=== PATIENT | female | born 2000 | race Asian ===

== ENCOUNTER 2018-08-09 21:52 | Inpatient (IN) ==
[2018-08-09] MEDS ORDERED: SODIUM CHLORIDE 0.9% 1000ML 1,000 ML IV SCH (22:15)
[2018-08-09 22:36] LABS: Hematocrit (blood only) 20.9 % (37-47); Mean Corpuscular Hgb Conc 33.5 g/dL (32-36); Mean Corpuscular Volume 74.1 fL (80-100); Mean Platelet Volume 9.6 fL (7.4-10.4); Platelet Count 344 K/uL (130-400); RDW Coefficient of Variation 17.1 % (11.5-14.5); RDW Standard Deviation 46.4 fL (36.4-46.3); Red Blood Count 2.82 M/uL (4.2-5.4); White Blood Count 11.96 K/uL (4.8-10.8)
[2018-08-09] MEDS ORDERED: ACETAMINOPHEN 325 MG TAB PO STA (22:43)
[2018-08-09] MEDS ORDERED: DiphenhydrAMINE HCL 50 MG/ML VIAL IV STA (22:43)
[2018-08-09] MEDS ORDERED: SODIUM CHLORIDE 0.9% 250 ML IV PRN (22:43)
[2018-08-09 22:52] LABS: Pregnancy Test, Serum Negative (Negative)
[2018-08-09 23:04] LABS: Anisocytosis Present; Basophils # (auto) 0.03 K/uL (0-0.2); Basophils % (auto) 0.3 %; Eosinophils # (auto) 0.06 K/uL (0-0.5); Eosinophils % (auto) 0.5 %; Hypochromasia Present; Immature Granulocytes # (auto) 0.05 K/uL (0.00-0.02); Immature Granulocytes % (auto) 0.4 %; Lymphocytes # (auto) 3.33 K/uL (1.2-3.4); Lymphocytes % (auto) 27.8 %; Monocytes # (auto) 0.61 K/uL (0.11-0.59); Monocytes % (auto) 5.1 %; Neutrophils # (auto) 7.88 K/uL (1.4-6.5); Neutrophils % (auto) 65.9 %; Polychromasia 1+; Schistocytes 1+
[2018-08-09 23:24] LABS: Alanine Aminotransferase 27 U/L (12-78); Albumin Level 3.3 gm/dl (3.4-5.0); Alkaline Phosphatase 78 U/L (45-117); Aspartate Aminotransferase 14 U/L (15-37); BUN Creatinine Ratio 18.4 (10-20); Bilirubin,Total 0.2 mg/dl (0.2-1); Blood Urea Nitrogen 12 mg/dl (7-18); Calcium 8.1 mg/dl (8.5-10.1); Carbon Dioxide 28 mmol/L (21-32); Chloride 106 mmol/L (98-107); Creatinine Clr Calc Pharmacy 132.4 ml/min; Est GFR (African American) 147.4; Est GFR (Non-African American) 127.2; Globulin 3.4 gm/dl (2.5-4.0); Glucose 83 mg/dl (70-99); Magnesium 2.2 mg/dl (1.8-2.4); Potassium 3.4 mmol/L (3.5-5.1); Sodium 140 mmol/L (136-145); Total Protein 6.7 gm/dl (6.4-8.2); Troponin I < 0.015 ng/ml (0-0.045)
[2018-08-09 23:52] LABS: INR 0.9 (0.9-1.1); Partial Thromboplastin Ratio 0.9; Partial Thromboplastin Time 24.3 Seconds (21.0-31.0); Prothrombin Time 9.4 Seconds (9.0-12.0)
--- NOTE | 2018-08-10 01:27 | History & Physical Report ---
Date of Service August 10, 2018 Assessment & Plan (1) Excessive vaginal ble[age]-year-old female admitted on 10 Aug 2018 for vaginal bleeding and acute anemia. Excessive vaginal bleeding, acute anemia: Onset about 48 hours prior to arrival. Denies history of the same, chest pain, shortness of breath, or other evidence of acute cardiopulmonary dysfunction. Denies accompanying abdominal/pelvic pain. At time of H&P, bleeding had decreased to minimal. - On arrival, afebrile, mildly tachycardic (EKG sinus tachycardia), normotensive, with normal room SpO2. WBC 12. Hemoglobin 6.6, rechecked 7.0. MCV 74. Normal platelets and coag factors. Normal TSH. Blood hCG negative. Electrolytes okay except mild hypocalcemia and hypokalemia. Normal BUN. Pelvic ultrasound was suggestive of a slightly heterogeneous and increased vascularity within the endometrium. - In the ED, was treated with normal saline IVF, Tylenol, and Benadryl. B positive blood type. Two units PRBC transfusion started in ED. - Consult gynecology. Continue maintenance IVF. Recheck CBC in a.m. Started on p.o. iron BID. Hypokalemia: Admit K 3.4. Will replace, recheck in a.m. Ongoing medical issues: - Depression/anxiety: Continue home bupropion and venlafaxine. Code status: Full code. Diet: Regular. DVT prophy: SCDs and ambulation. Defer chemical prophylaxis due to bleeding. PT/OT: Deferred. Disbo: Admit to med telemetry (to watch for sudden tachycardia as sign of acute re-bleeding). (2) Acute anemia: (3) Hypokalemia: (4) Depression: (5) Anxiety: History of Present Illness Primary Care Provider: James Cynthia 18-year-old female is accompanied by her mother with concerns for heavy vaginal bleeding. - She says about two days ago (14May) she noticed that her periods started earlier than normal. It was accompanied by much heavier flow than normal, averaging between 1-2 pads/tampons per hour. This continued up until her outpatient clinic visit earlier today, from which she was referred here to the ED. Patient says that before her period started she had some mild cramping but denies any particular ongoing cramping or any out right abdominal/pelvic pain. - Only other ROS symptom is been some fatigue and lightheadedness. She denies any fevers, known recent illness, chest pain, shortness of breath, or other acute concerns. - First menses was around age 11 and she denies ever being . She also mentions she put herself back on iron a couple days ago and has a history of needing supplemental iron. Patient says that normally she has regular periods about every 28 days with her last menses being roughly around 24Apr. She denies any history of routine heavy bleeding or interval spotting up until two days ago. Allergies Allergy/AdvReac Type Severity Reaction Status Date / Time amoxicillin Allergy Mild Rash Verified 08/10/18 00:42 Home Medications Home Medications Medication Instructions Recorded Confirmed Type bupropion HCl 300 mg PO QAM 08/10/18 08/10/18 History ferrous gluconate 324 mg PO BID #60 tab NS 08/10/18 Rx venlafaxine [Effexor XR] 150 mg PO DAILY 08/10/18 08/10/18 History Past Med/Surg History Medical History No chronic diseases present No significant past surgical history Social History Preferred Language: Citizen Of [place] Communication Ability: Effective Concreter Required: No Beliefs That Will Affect Care: None Current Living Situation: Family and Other Current Living Situation Comment: Roommates Other Information That Helps Us Care for You: No Feels Safe at Home: Yes Safety Concerns: Feels Safe At This Time Smoking Status: Never smoker Hx Alcohol Use: No Hx Substance Use: No Review of Systems Review of Systems: Constitutional: Denies fevers, chills, focal weakness. Positive mild lightheadedness. Eyes: Denies any visual loss or diplopia ENT: Denies any ear/nose/throat pain or difficulty speaking or swallowing Respiratory: Denies any dyspnea, cough, hemoptysis Cardiovascular: Denies any chest pain or feeling of edema Gastrointestinal: Denies any abdominal pain, nausea/vomiting/diarrhea Musculoskeletal: Denies any acute extremity pains, myalgias, or focal weakness Skin: Denies any known acute rashes or lesions Neuro: Denies any headache, acute focal weakness or numbness, or difficulties with speech or swallow. Physical Exam Physical Exam: GENERAL: Awake, alert, well-appearing, in no acute distress HENT: Normocephalic, atraumatic. Oropharynx unremarkable. EYES: Normal conjunctiva. Sclera non-icteric. NECK: Inspection normal. Supple and full ROM. No nuchal rigidity. CARDIAC: +S1S2 regular tachycardia, no murmurs. RESPIRATORY: Clear to auscultation. No wheezes or rales. Normal respiratory effort. GI: +BS, soft, non-distended. No tenderness to palpation. No rebound or guar ding. EXTREMITIES: No pedal edema or calf tenderness. Moving all extremities naturally and easily. NEURO: No gross neuro deficits. Results & Data Vital Signs (Past 12 Hours) Vital Signs Temp Pulse Pulse Resp BP BP Pulse Ox 08/10/18 00:50 36.8 C 115 H 20 113/67 99 08/10/18 00:20 36.8 C 109 H 20 123/65 99 08/10/18 00:05 37 C 106 H 20 121/69 100 08/09/18 23:54 100 08/09/18 23:51 36.6 C 117 H 20 123/67 100 08/09/18 23:05 113 H 20 130/76 98 08/09/18 21:54 36.9 C 120 H 18 114/71 100 Laboratory Results 08/09/18 08/09/18 08/09/18 Range/Units 22:16 22:16 22:16 WBC (4.8-10.8) K/uL RBC (4.2-5.4) M/uL Hgb (12.0-16.0) g/dL Hct (37-47) % MCV (80-100) fL MCH (25-34) pg MCHC (32-36) g/dL RDW Std Deviation (36.4-46.3) fL RDW Coeff of Derian (11.5-14.5) % Plt Count (130-400) K/uL MPV (7.4-10.4) fL Immature Gran % (Auto) % Neut % (Auto) % Lymph % (Auto) % Dukes % (Auto) % Eos % (Auto) % Baso % (Auto) % Immature Gran # (Auto) (0.00-0.02) K/uL Neut # (Auto) (1.4-6.5) K/uL Lymph # (Auto) (1.2-3.4) K/uL Dukes # (Auto) (0.11-0.59) K/uL Eos # (Auto) (0-0.5) K/uL Baso # (Auto) (0-0.2) K/uL Polychromasia Hypochromasia Anisocytosis Schistocytes PT 9.4 (9.0-12.0) Seconds INR 0.9 (0.9-1.1) APTT 24.3 (21.0-31.0) Seconds PTT Ratio 0.9 Sodium 140 (136-145) mmol/L Potassium 3.4 L (3.5-5.1) mmol/L Chloride 106 (98-107) mmol/L Carbon Dioxide 28 (21-32) mmol/L Anion Gap 6.0 (3-11) BUN 12 (7-18) mg/dl Creatinine 0.66 (0.6-1.2) mg/dl Est Cr Clr Drug Dosing 132.4 ml/min Est GFR ( Amer) 147.4 Est GFR (Non-Af Amer) 127.2 BUN/Creatinine Ratio 18.4 (10-20) Glucose 83 (70-99) mg/dl Calcium 8.1 L (8.5-10.1) mg/dl Magnesium 2.2 (1.8-2.4) mg/dl Total Bilirubin 0.2 (0.2-1) mg/dl AST 14 L (15-37) U/L ALT 27 (12-78) U/L Alkaline Phosphatase 78 (45-117) U/L Troponin I < 0.015 (0-0.045) ng/ml Total Protein 6.7 (6.4-8.2) gm/dl Albumin 3.3 L (3.4-5.0) gm/dl Globulin 3.4 (2.5-4.0) gm/dl Albumin/Globulin Ratio 1.0 (0.9-2) TSH 3.390 (0.300-4.500) uIu/ml HCG, Qual Negative (Negative) Blood Type Blood Type Recheck Antibody Screen Crossmatch 08/09/18 08/09/18 08/09/18 Range/Units 22:16 22:16 15:23 WBC 11.96 H (4.8-10.8) K/uL RBC 2.82 L (4.2-5.4) M/uL Hgb 7.0 L (12.0-16.0) g/dL Hct 20.9 L* (37-47) % MCV 74.1 L (80-100) fL MCH 24.8 L (25-34) pg MCHC 33.5 (32-36) g/dL RDW Std Deviation 46.4 H (36.4-46.3) fL RDW Coeff of Derian 17.1 H (11.5-14.5) % Plt Count 344 (130-400) K/uL MPV 9.6 (7.4-10.4) fL Immature Gran % (Auto) 0.4 % Neut % (Auto) 65.9 % Lymph % (Auto) 27.8 % Dukes % (Auto) 5.1 % Eos % (Auto) 0.5 % Baso % (Auto) 0.3 % Immature Gran # (Auto) 0.05 H (0.00-0.02) K/uL Neut # (Auto) 7.88 H (1.4-6.5) K/uL Lymph # (Auto) 3.33 (1.2-3.4) K/uL Dukes # (Auto) 0.61 H (0.11-0.59) K/uL Eos # (Auto) 0.06 (0-0.5) K/uL Baso # (Auto) 0.03 (0-0.2) K/uL Polychromasia 1+ Hypochromasia Present Anisocytosis Present Schistocytes 1+ PT (9.0-12.0) Seconds INR (0.9-1.1) APTT (21.0-31.0) Seconds PTT Ratio Sodium (136-145) mmol/L Potassium (3.5-5.1) mmol/L Chloride (98-107) mmol/L Carbon Dioxide (21-32) mmol/L Anion Gap (3-11) BUN (7-18) mg/dl Creatinine (0.6-1.2) mg/dl Est Cr Clr Drug Dosing ml/min Est GFR ( Amer) Est GFR (Non-Af Amer) BUN/Creatinine Ratio (10-20) Glucose (70-99) mg/dl Calcium (8.5-10.1) mg/dl Magnesium (1.8-2.4) mg/dl Total Bilirubin (0.2-1) mg/dl AST (15-37) U/L ALT (12-78) U/L Alkaline Phosphatase (45-117) U/L Troponin I (0-0.045) ng/ml Total Protein (6.4-8.2) gm/dl Albumin (3.4-5.0) gm/dl Globulin (2.5-4.0) gm/dl Albumin/Globulin Ratio (0.9-2) TSH (0.300-4.500) uIu/ml HCG, Qual (Negative) Blood Type B Positive Blood Type Recheck B Positive Antibody Screen NEGATIVE Crossmatch See Detail Medications Administered Sodium Chloride (Nss) 250 mls @ 15 mls/hr IV .[id number] PRN PRN Reason: For Transfusion Stop: 09/08/18 22:42 Last Admin: 08/09/18 23:01 Dose: 15 mls/hr Documented by: [id number] Discontinued Medications Acetaminophen (Tylenol) 650 mg PO NOW STA Stop: 08/09/18 22:44 Last Admin: 08/09/18 22:59 Dose: 650 mg Documented by: [id number] Diphenhydramine HCl (Benadryl) 25 mg IV NOW STA Stop: 08/09/18 22:44 Last Admin: 08/09/18 22:59 Dose: 25 mg Documented by: [id number] Sodium Chloride (Nss 1000ml) 1,000 mls @ 999 mls/hr IV .Q1H1M TITUS Stop: 08/09/18 23:15 Last Infusion: 08/10/18 00:00 Dose: 0 mls/hr Documented by: [id number] Admin: 08/09/18 22:26 Dose: 999 mls/hr Documented by: [id number] Code Status & VTE Plan Code Status Full code VTE Prophylaxis Plan VTE Prophylaxis will be ordered: Yes Supervising Physician Co-Signing Physician Notes Attending addendum: I have physically seen this patient, have supervised the medical residents activities, and agree with the H&P unless as otherwise noted. Assessment and Plan: Vaginal bleeding/anemia with hemoglobin 7.0- Patient is young, is appropriately tachycardic to compensate for low hemoglobin, therefore would not aggressively transfuse at this time. Consult BALE TIE MACHINE OPERATOR for opinion regarding control bleeding. Report from ED shows that BALE TIE MACHINE OPERATOR felt that reading of CT scan for possible endometritis would not be consistent with patient's current state. Admit to monitored bed. H&H every 6 hours. Check iron, TIBC, B12 and folic acid levels IV fluids. Remainder of orders and notations as noted. Resident Activity Tracking Resident Involvement: Resident Care Provided Care Provided: Adult [facility]
--- NOTE | 2018-08-10 01:31 | Emergency Department Note ---
History of Present Illness General Chief complaint: Abnormal Labs/Diagnostic Testing Stated complaint: ABNORMAL LABS Time Seen by Provider: 08/09/18 22:02 History of Present Illness This is a 18-year-old female presenting to the emergency department for evaluation of atypical outpatient labs. The patient has had profound vaginal bleeding over the past 4 to 5 days. She states that she initially had to change her tampon and pad every hour for the first 2 days. She had 1 day of minimal bleeding, and then had return of bleeding yesterday. The patient went to her primary care physician office this afternoon because of the bleeding, where outpatient labs, and pelvic exam were performed, as well as outpatient ultrasound. The patient denies , and states that she has had to change the pad once every 7 or 8 hours today. The patient had lightheadedness yesterday, but does not report headache, neck pain, chest pain, shortness of breath, or abdominal pain. She has never had symptoms like this in the past. She was called this evening with critical labs including a hemoglobin of 6.6. Her ultrasound showed a slightly heterogeneous endometrium which was nonspecific, but did recommend SPRAY GUN STRIPER consultation. She was given instructions to present to the ER for evaluation. She rates her current discomfort as 0/10. Home Medications Home Medications Medication Instructions Recorded Confirmed Type bupropion HCl 300 mg PO QAM 08/10/18 08/10/18 History venlafaxine [Effexor XR] 150 mg PO DAILY 08/10/18 08/10/18 History Allergies Allergy/AdvReac Type Severity Reaction Status Date / Time amoxicillin Allergy Mild Rash Verified 08/10/18 00:42 Past Med/Surg History Medical History No chronic diseases present No significant past surgical history Social History Preferred Language: [place] Communication Ability: Effective Registered Massage Therapist Required: No Beliefs That Will Affect Care: None Current Living Situation: Family and Other Current Living Situation Comment: Roommates Other Information That Helps Us Care for You: No Feels Safe at Home: Yes Safety Concerns: Feels Safe At This Time Smoking Status: Never smoker Hx Alcohol Use: No Hx Substance Use: No Review of Systems A total of 10 systems reviewed and were otherwise negative Physical Exam Vital Signs Vital Signs - 24 hr 08/09/18 21:54 08/09/18 23:05 08/09/18 23:51 Temperature 36.9 C 36.6 C Temperature Source Oral Oral Sepsis Recent Fever Within 48 Hours No Sepsis New/Unexplained Change in Mental Status No Sepsis Action Taken by Nursing No Action Required Pulse Rate 120 H 117 H Pulse Rate [Right Finger] 113 H Pulse Rhythm Pulse Rhythm [Right Finger] Regular Pulse Strength Pulse Strength [Right Finger] Normal Respiratory Rate 18 20 20 Respiratory Effort / Characteristics Non-Labored Spontaneous Respiratory Depth Normal Blood Pressure 114/71 123/67 Blood Pressure [Right Arm] 130/76 Blood Pressure Mean 85 85 Blood Pressure Mean [Right Arm] 94 Pulse Oximetry 100 98 100 Oxygen Delivery Method Room Air Room Air 08/09/18 23:54 08/10/18 00:05 08/10/18 00:20 Temperature 37 C 36.8 C Temperature Source Oral Oral Sepsis Recent Fever Within 48 Hours Sepsis New/Unexplained Change in Mental Status Sepsis Action Taken by Nursing Pulse Rate 106 H 109 H Pulse Rate [Right Finger] Pulse Rhythm Pulse Rhythm [Right Finger] Pulse Strength Pulse Strength [Right Finger] Respiratory Rate 20 20 Respiratory Effort / Characteristics Respiratory Depth Blood Pressure 121/69 123/65 Blood Pressure [Right Arm] Blood Pressure Mean 86 84 Blood Pressure Mean [Right Arm] Pulse Oximetry 100 100 99 Oxygen Delivery Method Room Air 08/10/18 00:50 Temperature 36.8 C Temperature Source Oral Sepsis Recent Fever Within 48 Hours Sepsis New/Unexplained Change in Mental Status Sepsis Action Taken by Nursing Pulse Rate 115 H Pulse Rate [Right Finger] Pulse Rhythm Regular Pulse Rhythm [Right Finger] Pulse Strength Normal Pulse Strength [Right Finger] Respiratory Rate 20 Respiratory Effort / Characteristics Respiratory Depth Blood Pressure 113/67 Blood Pressure [Right Arm] Blood Pressure Mean 82 Blood Pressure Mean [Right Arm] Pulse Oximetry 99 Oxygen Delivery Method VITALS: Vitals are noted on the nurse's note and reviewed by myself. Vital signs with noted tachycardia GENERAL: female who appears pale but is overall cooperative HEAD: Normocephalic atraumatic. EARS: External ear normal. External auditory canals clear, tympanic membranes pearly rehman without erythema or effusion bilaterally. EYES: Pupils equal round and reactive to light and accommodation. Conjunctivae without injection, sclerae without icterus. Extraocular movements intact. NOSE: Patent, turbinates without inflammation or discharge. MOUTH: Mucous membranes moist. Tonsils are not enlarged. Pharynx without erythema, blood, or exudate. Uvula midline. Airway patent. NECK: Supple without nuchal rigidity. No lymphadenopathy. No thyromegaly. Cervical spine is nontender. HEART: Regular rate and rhythm without murmurs gallops or rubs. LUNGS: Clear to auscultation bilaterally without wheezes, rales or rhonchi. No retractions or accessory muscle use. ABDOMEN: Positive normal bowel sounds x 4. Soft, nontender, without masses or organomegaly. No guarding or rebound tenderness. MUSCULOSKELETAL: No muscle atrophy, erythema, or edema noted. Full range of motion in all extremities. NEURO: Patient was alert and oriented to person place and time. CN II through XII grossly intact. SKIN: The skin was without rashes, erythema, edema, or bruising. Capillary refill less than 2 seconds. Course Administered Medications Discontinued Medications Acetaminophen (Tylenol) 650 mg PO NOW STA Stop: 08/09/18 22:44 Last Admin: 08/09/18 22:59 Dose: 650 mg Documented by: [id number] Diphenhydramine HCl (Benadryl) 25 mg IV NOW STA Stop: 08/09/18 22:44 Last Admin: 08/09/18 22:59 Dose: 25 mg Documented by: [id number] Sodium Chloride (Nss 1000ml) 1,000 mls @ 999 mls/hr IV .Q1H1M TITUS Stop: 08/09/18 23:15 Last Infusion: 08/10/18 00:00 Dose: 0 mls/hr Documented by: [id number] Admin: 08/09/18 22:26 Dose: 999 mls/hr Documented by: [id number] Sodium Chloride (Nss) 250 mls @ 15 mls/hr IV .[id number] PRN PRN Reason: For Transfusion Stop: 09/08/18 22:42 Last Admin: 08/09/18 23:01 Dose: 15 mls/hr Documented by: [id number] Medical Decision Making Differential Diagnosis Differential diagnosis: Etiologies such as ectopic , dysfunction uterine bleeding, pelvic mass, fibroid, coagulopathy, anemia, trauma, infection, as well as others were entertained. Laboratory Data Result diagrams: 08/09/18 22:16 08/09/18 22:16 Lab Results 08/09/18 08/09/18 08/09/18 Range/Units 15:23 22:16 22:16 WBC 11.96 H (4.8-10.8) K/uL RBC 2.82 L (4.2-5.4) M/uL Hgb 7.0 L (12.0-16.0) g/dL Hct 20.9 L* (37-47) % MCV 74.1 L (80-100) fL MCH 24.8 L (25-34) pg MCHC 33.5 (32-36) g/dL RDW Std Deviation 46.4 H (36.4-46.3) fL RDW Coeff of Derian 17.1 H (11.5-14.5) % Plt Count 344 (130-400) K/uL MPV 9.6 (7.4-10.4) fL Immature Gran % (Auto) 0.4 % Neut % (Auto) 65.9 % Lymph % (Auto) 27.8 % Winkler % (Auto) 5.1 % Eos % (Auto) 0.5 % Baso % (Auto) 0.3 % Immature Gran # (Auto) 0.05 H (0.00-0.02) K/uL Neut # (Auto) 7.88 H (1.4-6.5) K/uL Lymph # (Auto) 3.33 (1.2-3.4) K/uL Winkler # (Auto) 0.61 H (0.11-0.59) K/uL Eos # (Auto) 0.06 (0-0.5) K/uL Baso # (Auto) 0.03 (0-0.2) K/uL Polychromasia 1+ Hypochromasia Present Anisocytosis Present Schistocytes 1+ PT (9.0-12.0) Seconds INR (0.9-1.1) APTT (21.0-31.0) Seconds PTT Ratio Sodium (136-145) mmol/L Potassium (3.5-5.1) mmol/L Chloride (98-107) mmol/L Carbon Dioxide (21-32) mmol/L Anion Gap (3-11) BUN (7-18) mg/dl Creatinine (0.6-1.2) mg/dl Est Cr Clr Drug Dosing ml/min Est GFR ( Amer) Est GFR (Non-Af Amer) BUN/Creatinine Ratio (10-20) Glucose (70-99) mg/dl Calcium (8.5-10.1) mg/dl Magnesium (1.8-2.4) mg/dl Total Bilirubin (0.2-1) mg/dl AST (15-37) U/L ALT (12-78) U/L Alkaline Phosphatase (45-117) U/L Troponin I (0-0.045) ng/ml Total Protein (6.4-8.2) gm/dl Albumin (3.4-5.0) gm/dl Globulin (2.5-4.0) gm/dl Albumin/Globulin Ratio (0.9-2) TSH (0.300-4.500) uIu/ml HCG, Qual (Negative) Blood Type B Positive Blood Type Recheck B Positive Antibody Screen NEGATIVE Crossmatch See Detail 08/09/18 08/09/18 08/09/18 Range/Units 22:16 22:16 22:16 WBC (4.8-10.8) K/uL RBC (4.2-5.4) M/uL Hgb (12.0-16.0) g/dL Hct (37-47) % MCV (80-100) fL MCH (25-34) pg MCHC (32-36) g/dL RDW Std Deviation (36.4-46.3) fL RDW Coeff of Derian (11.5-14.5) % Plt Count (130-400) K/uL MPV (7.4-10.4) fL Immature Gran % (Auto) % Neut % (Auto) % Lymph % (Auto) % Winkler % (Auto) % Eos % (Auto) % Baso % (Auto) % Immature Gran # (Auto) (0.00-0.02) K/uL Neut # (Auto) (1.4-6.5) K/uL Lymph # (Auto) (1.2-3.4) K/uL Winkler # (Auto) (0.11-0.59) K/uL Eos # (Auto) (0-0.5) K/uL Baso # (Auto) (0-0.2) K/uL Polychromasia Hypochromasia Anisocytosis Schistocytes PT 9.4 (9.0-12.0) Seconds INR 0.9 (0.9-1.1) APTT 24.3 (21.0-31.0) Seconds PTT Ratio 0.9 Sodium 140 (136-145) mmol/L Potassium 3.4 L (3.5-5.1) mmol/L Chloride 106 (98-107) mmol/L Carbon Dioxide 28 (21-32) mmol/L Anion Gap 6.0 (3-11) BUN 12 (7-18) mg/dl Creatinine 0.66 (0.6-1.2) mg/dl Est Cr Clr Drug Dosing 132.4 ml/min Est GFR ( Amer) 147.4 Est GFR (Non-Af Amer) 127.2 BUN/Creatinine Ratio 18.4 (10-20) Glucose 83 (70-99) mg/dl Calcium 8.1 L (8.5-10.1) mg/dl Magnesium 2.2 (1.8-2.4) mg/dl Total Bilirubin 0.2 (0.2-1) mg/dl AST 14 L (15-37) U/L ALT 27 (12-78) U/L Alkaline Phosphatase 78 (45-117) U/L Troponin I < 0.015 (0-0.045) ng/ml Total Protein 6.7 (6.4-8.2) gm/dl Albumin 3.3 L (3.4-5.0) gm/dl Globulin 3.4 (2.5-4.0) gm/dl Albumin/Globulin Ratio 1.0 (0.9-2) TSH 3.390 (0.300-4.500) uIu/ml HCG, Qual Negative (Negative) Blood Type Blood Type Recheck Antibody Screen Crossmatch MDM Narrative Physical exam and history were performed. Nursing notes, EMR, and Medication List were personally reviewed. Patient appears to have had vaginal bleeding the past several days with hemoglobin of 6.6 on outpatient labs. On examination the patient is tachycardic but pleasant and cooperative. She does not have pain or reproducible discomfort on exam. IV access x2 was established. Labs and blood bank were gathered. The patient was hydrated with normal saline and placed on the air sampling and monitoring. The case was discussed with my attending physician, Dr. Snow, who remained involved in care and decision-making. Dr. Snow did get consent for blood transfusion, and appropriate paperwork was completed. The patient's blood work in the ER today is as above and was reviewed. She does have an elevated white blood cell count of 11.96. She continues to be anemic at 7.0 with a hematocrit of 20.9. Platelet count is 344. INR is 0.9. TSH is 3.3. Transaminases are not diagnostic. Bilirubin is 0.2. Troponin is negative. She has blood type B+. She is not . Based on the patient's symptoms of symptomatic anemia, we did elect to initiate a transfusion of 2 units of blood. She was premedicated with Benadryl and Tylenol. I did discuss the case with on-call INSPECTOR AND MENDER, Dr. Lan, as well as the on-call hospitalist Dr. Pinedo. Dr. Pinedo agreed to evaluate the patient here in the emergency department for further management. Please see his dictation for further patient course, plan, and disposition. The chart was completed utilizing [employer] Voice Recognition Software. Grammatical errors, random word insertions, pronoun errors, and incomplete sentences are an occasional consequence of this system due to software limitations, ambient noise, and hardware issues. Any formal questions or concerns about the content, text, or information contained within the body of this dictation should be directly addressed to the provider for clarification. . Impression & Plan Acute anemia, Excessive vaginal bleeding Critical Care Time I have personally spent greater than 30 minutes of critical care time in the direct management of this patient. This includes bedside care, interpretation of diagnostic studies, and testing, discussion with consultants, patient, and family members, and other required patient management activities. This 30 minutes is in excess of all separately billable procedures. Discharge Plan Visit Data *Final* Discharge Date/Time: 08/10/18 01:57 Chief Complaint: Abnormal Labs/Diagnostic Testing Stated Complaint: ABNORMAL LABS ED Provider: Will Snow ED Midlevel Provider: Pratik Myers Discharge Problem: Acute anemia, Excessive vaginal bleeding Patient Disposition: Admitted As Inpatient Discharge Instructions Interventions: ED Discharge Assessment Last Done: 08/10/18 01:57
[2018-08-10] MEDS ORDERED: LACTATED RINGER'S 1,000 ML IV SCH (02:24)
[2018-08-10] MEDS ORDERED: ACETAMINOPHEN 325 MG TAB PO PRN (02:24)
[2018-08-10] MEDS ORDERED: POTASSIUM CHLORIDE 20 MEQ TABCR PO ONE (02:24)
[2018-08-10] MEDS ORDERED: ONDANSETRON INJ 2 MG/ML 2 ML VIAL IV PRN (02:24)
[2018-08-10 06:35] LABS: Basophils # (auto) 0.01 K/uL (0-0.2); Basophils % (auto) 0.1 %; Eosinophils # (auto) 0.05 K/uL (0-0.5); Eosinophils % (auto) 0.5 %; Hematocrit (blood only) 24.9 % (37-47); Hemoglobin 8.2 g/dL (12.0-16.0); Immature Granulocytes # (auto) 0.06 K/uL (0.00-0.02); Immature Granulocytes % (auto) 0.6 %; Lymphocytes # (auto) 3.15 K/uL (1.2-3.4); Lymphocytes % (auto) 32.5 %; Mean Corpuscular Hgb Conc 32.9 g/dL (32-36); Mean Corpuscular Volume 78.3 fL (80-100); Mean Platelet Volume 9.5 fL (7.4-10.4); Monocytes # (auto) 0.49 K/uL (0.11-0.59); Monocytes % (auto) 5.1 %; Neutrophils # (auto) 5.92 K/uL (1.4-6.5); Neutrophils % (auto) 61.2 %; Nucleated RBC # (auto) 0.06 K/uL (0-0); Nucleated RBC % (auto) 0.7 %; Platelet Count 231 K/uL (130-400); RDW Coefficient of Variation 16.9 % (11.5-14.5); RDW Standard Deviation 48.4 fL (36.4-46.3); Red Blood Count 3.18 M/uL (4.2-5.4); White Blood Count 9.68 K/uL (4.8-10.8)
[2018-08-10 07:06] LABS: BUN Creatinine Ratio 18.5 (10-20); Blood Urea Nitrogen 11 mg/dl (7-18); Calcium 7.8 mg/dl (8.5-10.1); Carbon Dioxide 25 mmol/L (21-32); Chloride 110 mmol/L (98-107); Creatinine Clr Calc Pharmacy 146.5 ml/min; Est GFR (African American) > 150.0; Est GFR (Non-African American) 131.2; Glucose 86 mg/dl (70-99); Sodium 141 mmol/L (136-145)
[2018-08-10 07:11] LABS: Potassium 4.4 mmol/L (3.5-5.1)
[2018-08-10] MEDS ORDERED: FERROUS SULFATE 325 MG TAB PO SCH (08:00)
[2018-08-10] MEDS ORDERED: VENLAFAXINE HCL XR 150 MG CAPXR PO SCH (09:00)
[2018-08-10] MEDS ORDERED: BuPROPion XL 300 MG TABCR PO SCH (09:00)
--- NOTE | 2018-08-10 09:14 | Consultation Report ---
DATE OF CONSULTATION: 08/10/2018 CHIEF COMPLAINT: Consult for heavy bleeding BRIEF HISTORY: Sharron is a 18-year-old G0 with an LMP of 08/07/2018. The patient presented to the ED with lightheadedness and dizziness with heavier than normal period. The patient reports that she had been saturating a pad every 1-2 hours for the first 2 days of her period. She reports that yesterday her bleeding had improved to a pad every 5-6 hours, and at time of evaluation today, the patient reports that her bleeding has nearly stopped. The patient did undergo a transvaginal ultrasound which was noted to have an unremarkable uterus with a 1 cm thick endometrium that was slightly heterogeneous and demonstrate increased vascularity. The right ovary contained a complex cyst thought to represent a corpus luteum or hemorrhagic cyst. The left ovary was unremarkable. Laboratory evaluation in the ED was notable for a hemoglobin of 7.0, hematocrit of 20.9, MCV of 74.1. Coags were unremarkable. BMP was also unremarkable. In discussion with the patient today, she does report that typically she has regular periods roughly every 28-30 days with 3-4 days of bleeding. She reports that she typically has 1-2 days of heavy bleeding which she saturated the pads about every 3-4 hours. She denies any bleeding between periods. She denies any bleeding from her prior period until this most recent LMP of 08/07. PAST MEDICAL HISTORY: Depression, otherwise unremarkable. PAST SURGICAL HISTORY: The patient denies any significant past surgeries. SOCIAL HISTORY: The patient denies tobacco, alcohol or illicit drug use. MEDICATIONS: Wellbutrin and Effexor. ALLERGIES: AMOXICILLIN. PHYSICAL EXAMINATION: VITAL SIGNS: Blood pressure 113/72, pulse 92, respiratory rate 18, temperature 98.2, O2 sats 99%. GENERAL: The patient was well appearing, in no acute distress, alert and oriented x3. CARDIAC: Showed regular rate and rhythm. LUNGS: Clear to auscultation to auscultation bilaterally. ABDOMEN: Soft, nontender, nondistended, no hepatosplenomegaly, no rebound or guarding noted. GENITOURINARY: Deferred today as the patient reports that her bleeding has stopped and ultrasound was relatively unremarkable. EXTREMITIES: Lower extremities were unremarkable bilaterally. ASSESSMENT AND PLAN: Ms. Crowley is a 18-year-old G0 who presents with heavy uterine bleeding and questionable endometrial pathology on ultrasound. Based on the patient's history, the bleeding would be a little unusual to cause the level of anemia noted on presentation. In addition, there is also noted to be a microcytic anemia which likely is related to either an iron deficiency or other underlying chronic anemia. The patient's bleeding, however, likely did cause an acute worsening of her anemia which did likely cause her symptoms. At this time, the bleeding has just stopped. The pathology, there is questionable on the ultrasound, is most likely a retained blood clot that was present during the ultrasound as the patient does not have a history of heavy bleeding or any intermenstrual bleeding which would be expected with a polyp or endometrial fibroid. I did discuss with the patient today starting a medication to control her periods. We discussed possibilities including an oral combined pill, progesterone-only pill, Depo-Provera as well as the IUDs. At this point, since the bleeding has stopped, no acute interventions are indicated and therefore I will ask the patient to see me in clinic on Monday and I will follow up with a transvaginal ultrasound at that time and also hold slot for my next OR day if uterine pathology is noted, so D and C, hysteroscopy can be performed if indicated. MTDD
--- NOTE | 2018-08-10 12:48 | Discharge Summary ---
Date of Service August 10, 2018 Admission HPI Per Admitting Provider 18-year-old female is accompanied by her mother with concerns for heavy vaginal bleeding. - She says about two days ago (14May) she noticed that her periods started earlier than normal. It was accompanied by much heavier flow than normal, averaging between 1-2 pads/tampons per hour. This continued up until her outpatient clinic visit earlier today, from which she was referred here to the ED. Patient says that before her period started she had some mild cramping but denies any particular ongoing cramping or any out right abdominal/pelvic pain. - Only other ROS symptom is been some fatigue and lightheadedness. She denies any fevers, known recent illness, chest pain, shortness of breath, or other acute concerns. - First menses was around age 11 and she denies ever being . She also mentions she put herself back on iron a couple days ago and has a history of needing supplemental iron. Patient says that normally she has regular periods about every 28 days with her last menses being roughly around 24Apr. She denies any history of routine heavy bleeding or interval spotting up until two days ago. Principal Diagnosis acute blood loss anemia abnormal vaginal bleeding Discharge Exam Constitutional WD/WN, vitals as above healthy appearing, cooperative and comfortable; no acute distress and no altered mental status Eyes no conjunctival abnormality and no scleral abnormality ENMT external ear and nose normal, oropharynx normal Ears: no hearing impairment Neck normal visual inspection Respiratory normal respiratory effort, lungs clear to auscultation Cardiovascular RRR, no murmur, no edema Extremities: no calf tenderness and no edema Gastrointestinal (Abdomen) normal bowel sounds, soft, nontender, no hepatosplenomegaly Inspection/Auscultation: abdomen not distended Percussion/Palpation: no guarding and abdomen not rigid Musculoskeletal Head/Neck/Chest: normocephalic, head atraumatic and neck supple Extremities: extremities normal to inspection Skin no rashes, warm and dry Trauma: no evidence of skin trauma Neurologic PERRL, EOMI, accommodation nl, no face palsy, no dysarthria moves all extremities; + abnormal touch/pain/proprioception, + CN's not intact and no focal motor deficits No nystagmus with saccadic eye movement Psychiatric A+Ox3, euthymic affect Eye Contact: good eye contact Speech: normal rate/rhythm/volume of speech Discharge Data Allergies Allergy/AdvReac Type Severity Reaction Status Date / Time amoxicillin Allergy Mild Rash Verified 08/10/18 00:42 Consultations 08/10/18 00:21 ED Decision to Admit Stat 08/10/18 02:24 Consult Gynecology Routine Hospital Course (1) Excessive vaginal bleedin-year-old female admitted on 10 Aug 2018 for vaginal bleeding and acute anemia. Acute iron deficiency anemia On arrival: afebrile, EKG sinus tachycardia, normotensive, with normal room SpO2. WBC 12. Hemoglobin 6.6, rechecked 7.0. MCV 74. Normal platelets and coag factors. Normal TSH. Blood hCG negative. Electrolytes okay except mild hypocalcemia and hypokalemia. Normal BUN. s/p transfusion of 2 units of pRBCs, with resolution of lightheadedness - Discharged on ferrous gluconate BID supplementation with education for ideal timing to take, risk of constipation and appropriate mx of said sx - Recommend repeat CBC/iron studies in 6 months, or sooner if abnormal bleeding continues Metorrhagia At time of admission, bleeding had decreased to minimal - no need for hormonal control Pelvic ultrasound was suggestive of a slightly heterogeneous and increased vascularity within the endometrium. - Will follow up with drug worker, Dr. Lna for repeat pelvic U/S 08/13/18 - Follow up with PCP re: control options to help control menses timing/severity Mild concussion From syncopal episode 2 days prior to arrival. Symptoms 99% resolved on assessment - Follow up with PCP for recurrent/persistent sx Hypokalemia Admit K 3.4. Normalized with repletion Depression/anxiety - Continue home bupropion and venlafaxine. (2) Acute anemia: (3) Hypokalemia: (4) Depression: (5) Anxiety: (6) Mild concussion: Total Time Total Time Spent Total Time Spent (In Minutes): >30 Discharge Plan Discharge Items Patient Disposition: Home - Self-Care Reason For Visit: VAGINAL BLEEDING, ANEMIA Discharge Diagnosis: Metrorrhagia Condition: Good Discharge Goals: Decrease discomfort Activity: Resume your previous activity Non-emergency contact: Primary Care Provider Call non-emergency contact if: your symptoms worsen Follow-up/Referrals: James Marie [Primary Care Provider] - 08/17/18 3:10 pm (Please, follow up at Dr. Marie's office with Anna DELA CRUZNP on MondayAugust 17 at 3:10 pm. *If you need to change this appointment, call the office at [phone].) Santhosh Lan MD [Physician] - 08/13/18 1:00 pm (Please, follow up at Dr. Lan's office on MondayAugust 13 at 1:00 pm (arrive 12:40 pm). *The office is located in [address] of [facility] [place]. This is the big building next to this hospital. If you have any questions, call the office at [phone].) Diet: Regular Addtl Provider Instructions: Heavy bleeding outside of your normal menstrual cycle. You were transfused 2 units of blood, with improvement of hemoglobin to 8.2 On discharge, in addition to your regular medications, take ferrous gluconate twice a day x 3-6 months. This medication is best absorbed if taken on an empty stomach (an hour before or after food intake) and when taken with orange juice if possible, or water. Avoid taking close to time of dairy intake. This medication may make your stool black, and might make you constipated (so keep yourself well hydrated, and use stool softeners if required. Or else, reduce medication to once daily if significant constipation) Follow up with gynecology on August 13, 2018 for repeat ultra sound. Talk to your PCP about contraception options to help control blood and iron loss during menses Seek medical care if you have ongoing concussive symptoms in 1-2 weeks. Check your hemoglobin level and/or iron studies again in 6 months Prescriptions: New ferrous gluconate 324 mg (37.5 mg iron) tablet 324 mg PO BID Qty: 60 RF: 0 Continued bupropion HCl 300 mg Tablet Extended Release 24 Hr 300 mg PO QAM RF: 0 venlafaxine [Effexor XR] 150 mg Capsule,Extended Release 24hr 150 mg PO DAILY RF: 0 Stand-Alone Forms: [facility] Discharge Orders: Discharge Order (Routine); Ordered 08/10/18 Ordered By: Sandie Qureshi Admission Data Admit Date/Time: 08/10/18 01:23 Attending Provider: Will Saba Admit Provider: Elian Lassiter Primary Care Provider: James Marie Other Providers: PasquarJuan Antonio [place] Joshua D. Service: Telemetry Medical Other Interventions: Discharge Summary Assessment (RN) Last Done: 08/10/18 14:00 DC Date/Time DO NOT enter until pt leaves facility: 08/10/18 14:49 Supervising Physician Co-Signing Physician Notes I personally examined the patient and verified all cohen points of history and exam, discussed case, and agree with decision making with Dr Qureshi. Feeling better. Bleeding stopped. Extensive discussions with patient and mother on bleeding as well as anemia, including iron deficiency discussion. Vitals noted, in general she is pleasant no distress. HEENT is moist. Breathing unlabored no accessory muscle use. Skin shows no rashes no pallor or icterus. Acute likely superimposed on subacute blood loss anemianow improved status post transfusion. Stable for home. Chronic microcytic anemiathis is likely due to chronic iron deficiency from heavy menstrual losses. Outpatient follow-up, iron replacement, follow-up iron stores in approximately 3 to 4 months once donor blood effect will have worn off of her labs. Continue to follow CBC closely as an outpatient. Heavy menstrual bleedingstopped on its own, no hormonal intervention necessary right now Abnormal uterine ultrasoundmost likely the abnormalities are just blood. [employer]ATE [employer] is going to see her next week and repeat ultrasound. Stable for home. Resident Activity Tracking Resident Involvement: Resident Care Provided Care Provided: Adult Hospital Medicine
== END 2018-08-10 14:49 | disposition home or self-care (01) | DRG 760 ==
LOC: ED 21:52 → SUATTDRO 08-10 01:23 → 2W 08-10 01:23

== ENCOUNTER 2020-01-26 22:27 | Inpatient (IN) ==
[2020-01-26] MEDS ORDERED: SODIUM CHLORIDE 0.9% 1000ML 2,000 ML IV ONE (23:03)
[2020-01-26] MEDS ORDERED: ONDANSETRON INJ 2 MG/ML 2 ML VIAL IV STA (23:03)
[2020-01-26] MEDS ORDERED: FAMOTIDINE 20MG IV PUSH 20 MG/5 ML SYR IV STA (23:03)
[2020-01-26 23:26] LABS: Basophils # (auto) 0.03 K/uL (0-0.2); Basophils % (auto) 0.3 %; Eosinophils # (auto) 0.03 K/uL (0-0.5); Eosinophils % (auto) 0.3 %; Hematocrit (blood only) 40.3 % (37-47); Immature Granulocytes # (auto) 0.02 K/uL (0.00-0.02); Immature Granulocytes % (auto) 0.2 %; Lymphocytes # (auto) 0.98 K/uL (1.2-3.4); Lymphocytes % (auto) 11.2 %; Mean Corpuscular Hgb Conc 34.7 g/dL (32-36); Mean Corpuscular Volume 89.4 fL (80-100); Mean Platelet Volume 9.9 fL (7.4-10.4); Monocytes # (auto) 0.64 K/uL (0.11-0.59); Monocytes % (auto) 7.3 %; Neutrophils # (auto) 7.06 K/uL (1.4-6.5); Neutrophils % (auto) 80.7 %; Platelet Count 225 K/uL (130-400); RDW Coefficient of Variation 11.9 % (11.5-14.5); RDW Standard Deviation 38.6 fL (36.4-46.3); Red Blood Count 4.51 M/uL (4.2-5.4); White Blood Count 8.76 K/uL (4.8-10.8)
[2020-01-26 23:45] LABS: Albumin Level 4.2 gm/dl (3.4-5.0); Calcium 9.1 mg/dl (8.5-10.1); Creatinine Clr Calc Pharmacy 109.3 ml/min; Est GFR (African American) 122.2; Est GFR (Non-African American) 105.4; Magnesium 1.8 mg/dl (1.8-2.4); Potassium 3.4 mmol/L (3.5-5.1)
[2020-01-26 23:46] LABS: Pregnancy Test, Serum Negative (Negative)
[2020-01-27] MEDS ORDERED: IOVERSOL 100ml IV ONE (00:07)
[2020-01-27 00:09] LABS: Albumin Globulin Ratio 1.3 (0.9-2); Bilirubin Direct 0.4 mg/dl (0-0.2); Bilirubin,Total 0.8 mg/dl (0.2-1); Globulin 3.2 gm/dl (2.5-4.0); Phosphorus 1.6 mg/dl (2.5-4.9); Total Protein 7.4 gm/dl (6.4-8.2)
--- NOTE | 2020-01-27 00:48 | Emergency Department Note ---
Impression & Plan Transaminitis, Hypokalemia, Gastroenteritis, Hypophosphatemia, Hypomagnesemia, Elevated INR ED Provider Note NAME: TORI ARROYO AGE: 19 SEX: F ARRIVES VIA: Walk-In INFORMANT: Patient, ED PROVIDER(S): Scott Johnson MD CHIEF COMPLAINT: Fever, nausea, vomiting, diarrhea. PLAN: Disposition: Admit MEDICAL DECISION MAKING: The patient is a pleasant 19-year-old woman with a past medical history of anxiety and depression who presents emergency department accompanied by her mother with acute onset feverishness, chills with diarrhea and n/v that began prior to arrival at approximately 1800. She denies any recent cough, congestion, shortness of breath, chest pain or abdominal pain. She does feel numbness and tingling throughout her body but is anxious and hyperventilating. She reports she is currently on her menstrual cycle which is typically regular and remarkable. Denies any known COVID-19 exposures. She reports feeling fine yesterday and drink gin with her friends. She feels she drank approximately 6 drinks but admits that these were not measured shots and may have had more. She denies any regular alcohol use. Denies drug use. She reports waking up this morning and not feeling particularly sluggish though does admit to feeling somewhat queasy when eating her lunch. She reports her lunch today at 2 PM was fresh and denies any fowl taste. On arrival patient is anxious and uncomfortable appearing, hyperventilating, febrile to 38.3 with heart rate in the 100s and vital signs otherwise stable. The patient appears clinically dry. She does exhibit tensing of her extremities but has normal reflexes, no clonus and soft compartments. Her abdomen is benign. WBC, H/H and platelets within normal limits. Chemistry without acidosis. Potassium 3.4, museum 1.8 and phosphorus 1.6 which is likely related to a com ponent of the patient's hyperventilation. Chemistry without acidosis. The patient does exhibit a significant transaminitis that does appear new with AST 3100 and ALT 2000. Patient's total bilirubin is within normal limits. Direct bilirubin 0.4. Alk phos is not elevated. UA negative for infection. Given the patient's appearance and discomfort on presentation CT abdomen pelvis was ordered upon initial evaluation, though again she had a benign abdominal exam. CT was performed and this was unremarkable per preliminary statrad report. On reevaluation the patient was feeling significantly improved after IV fluid hydration, electrolyte repletion, Pepcid, Zofran. I did review the patient's elevated LFTs with the patient and her mother at the bedside. She again reiterates that she does not drink heavily on a regular basis. Additionally she denies feeling any recent depression or hopelessness and denies any thoughts of SI or attempts at overdose. She denies any regular Tylenol use. She denies any recent travel. She continued to feel improved, was hemodynamically stable, and was able to tolerate oral hydration and crackers without difficulty. However, given the patient's lab abnormalities additional blood work was performed including INR, which demonstrated mild elevation to 1.5, which raise concern acute liver injury/hepatitis. MELD score 11. Acetaminophen was ordered and was negative. However, NAC ordered, as still can have therapeutic role. Hepatitis panel ordered. Negative Hep Bs but Hep A Ab and Hep B AB pending. Monoscreen negative with reflex EBV pending. CPK wnl. Covid19 pcr negative. Lyme screen negative. Anaplasma smear negative with DNA pending. Etoh negative. Salicylates negative. Urine drug screen positive for marijuana. Stool studies pending specimen. Unclear etiology to patient's hepatitis at this time, however suspect viral or toxic etiology. Given patient's hepatitis, reasonable to proceed with admission for further management. Patient and mother at the bedside were agreeable. Case was discussed with Dr. Nicholson, [facility] hospitalist, and Dr. Virk, admitting resident, who will evaluated the patient and reviewed with Dr. Hernandez, Gi on-call, who recommended transfer if possible. Agrees with NAC. At the time of change of shift, case was signed out to Dr. Luther, with arrangements for possible transfer pending. Triage Nursing notes reviewed and agree them. Prior medical records reviewed Vital Signs: reviewed and remarkable for fever and tachycardia. Differential diagnosis: Gastroenteritis, food borne illness, infections, appendicitis, diverticulitis, inflammatory bowel disease, obstruction, GI bleed, biliary pathology, volvulus, as well as other pathologies. ER treatment provided: See below. Diagnostics interpreted by me: Cardiac Monitoring: An order for continuous cardiac monitoring was placed and demonstrated sinus tachycardia, 107 bpm, no ectopy. Laboratory studies: See below Imaging studies: STATRAD Preliminary Findings Only See Final Report For Complete Findings CT ABDOMEN & PELVIS With Contrast: No previous studies for comparison The liver, spleen, pancreas and gallbladder appear normal. The stomach, small bowel, colon and appendix appear normal. Adrenals kidneys ureters and bladder appear normal. There is an intrauterine contraceptive device. Vascular structures appear normal . There is no free peritoneal air or fluid. Impression: No acute findings Radiologist: Kayode Bernard MD Study ready at 00:12 and initial results transmitted at 00:17 Consultation(s): Dr. Nicholson, [facility] hospitalist. HPI: The patient is a pleasant 19-year-old woman with a past medical history of anxiety and depression who presents emergency department accompanied by her mother with acute onset feverishness, chills with diarrhea and n/v that began prior to arrival at approximately 1800. She denies any recent cough, congestion, shortness of breath, chest pain or abdominal pain. She does feel numbness and tingling throughout her body but is anxious and hyperventilating. She reports she is currently on her menstrual cycle which is typically regular and remarkable. Denies any known COVID-19 exposures. She reports feeling fine yesterday and drink gin with her friends. She feels she drank approximately 6 drinks but admits that these were not measured shots and may have had more. She denies any regular alcohol use. Denies drug use. She reports waking up this morning and not feeling particularly sluggish though does admit to feeling somewhat queasy when eating her lunch. She reports her lunch today at 2 PM was fresh and denies any fowl taste. ROS: See above HPI for pertinent positives & negatives. A total of 10 systems reviewed and were otherwise negative. PAST MEDICAL HISTORY:See Below PAST SURGICAL HISTORY:See Below FAMILY HISTORY:See Below SOCIAL HISTORY:See Below HOME MEDICATIONS:See Below ALLERGIES:See Below VITALS:See Below PHYSICAL EXAMINATION: GENERAL: Awake, alert, uncomfortable and anxious-appearing, in no distress HENT: Normocephalic, atraumatic. Oropharynx with dry mucous membranes and otherwise unremarkable. . EYES: Normal conjunctiva. Sclera non-icteric. NECK: Supple. No nuchal rigidity. FROM. No JVD. RESPIRATORY: Clear to auscultation. CARDIAC: Tachycardic rate, normal rhythm. Extremities warm and well perfused. Pulses equal. ABDOMEN: Soft, non-distended. No tenderness to palpation. No rebound or guarding. No masses. RECTAL: Deferred. MUSCULOSKELETAL: Chest examination reveals no tenderness. The back is symmetrical on inspection without obvious abnormality. There is no CVA tenderness to palpation. No joint edema. LOWER EXTREMITIES: Calves are equal size bilaterally and non-tender. No edema. No discoloration. NEURO: Normal sensorium. No sensory or motor deficits noted. SKIN: No rash or jaundice noted. ED COURSE: Critical Care: I have personally spent greater than 75 minutes of critical care time in the direct management of this patient. This includes bedside care, interpretation of diagnostic studies, and testing, discussion with consultants, patient, and family members, and other required patient management activities. This 75 minutes is in excess of all separately billable procedures. Scott Johnson MD Past Med/Surg History Medical History (Updated 01/27/20 @ 05:40 by Scott Johnson MD) Anemia D/T HEAVY MENSES Anxiety Depression No chronic diseases present Surgical History H/O wisdom tooth extraction Family History Grandmother (Maternal) Family history of diabetes mellitus Social History Smoking Status: Current some day smoker Second Hand Exposure: No; Hx Alcohol Use: Yes Alcohol type: hard liquor Hx Substance Use: Yes (USES OCCASIONALLY) Last Used Substance Other:: 07/21/18 Preferred Language: Croatian Communication Ability: Effective Cattle Brander Required: No Beliefs That Will Affect Care: None Current Living Situation: Family and Other Current Living Situation Comment: Roommates Feels Safe at Home: Yes Assistive Devices: Glasses Allergies Allergies Allergy/AdvReac Type Severity Reaction Status Date / Time amoxicillin Allergy Mild Rash Verified 01/26/20 23:15 Home Meds Home Medications Medication Instructions Recorded Confirmed bupropion HCl 300 mg PO DAILY 01/26/20 01/26/20 vortioxetine [Trintellix] 10 mg PO DAILY 01/26/20 01/26/20 Results & Data (ED) Vital Signs Vital Signs - 24 hr 01/26/20 22:28 01/27/20 01:08 01/27/20 01:47 Temperature 38.3 C H Temperature Source Oral Pulse Rate 107 H Pulse Rate [Right Finger] 97 H 99 H Pulse Rhythm Regular Pulse Strength Normal Respiratory Rate 17 19 19 Respiratory Effort / Characteristics Non-Labored Respiratory Depth Normal Respiratory Pattern Regular Blood Pressure 135/85 Blood Pressure [Right Arm] 121/72 124/79 Blood Pressure Mean 101 Blood Pressure Mean [Right Arm] 88 94 Pulse Oximetry 98 99 98 Oxygen Delivery Method Room Air Sepsis Recent Fever Within 48 Hours Yes Sepsis New/Unexplained Change in Mental Status No Sepsis Action Taken by Nursing No Action Required 01/27/20 02:39 01/27/20 03:06 01/27/20 03:07 Temperature 37 C Temperature Source Oral Pulse Rate Pulse Rate [Right Finger] 93 H Pulse Rhythm Pulse Strength Respiratory Rate 18 Respiratory Effort / Characteristics Respiratory Depth Respiratory Pattern Blood Pressure Blood Pressure [Right Arm] 124/81 Blood Pressure Mean Blood Pressure Mean [Right Arm] 95 Pulse Oximetry 98 98 Oxygen Delivery Method Room Air Sepsis Recent Fever Within 48 Hours Sepsis New/Unexplained Change in Mental Status Sepsis Action Taken by Nursing 01/27/20 04:00 01/27/20 05:00 Temperature Temperature Source Pulse Rate Pulse Rate [Right Finger] 84 103 H Pulse Rhythm Pulse Strength Respiratory Rate 18 18 Respiratory Effort / Characteristics Non-Labored Respiratory Depth Normal Respiratory Pattern Blood Pressure Blood Pressure [Right Arm] 130/83 151/88 H Blood Pressure Mean Blood Pressure Mean [Right Arm] 98 109 Pulse Oximetry 98 98 Oxygen Delivery Method Room Air Room Air Sepsis Recent Fever Within 48 Hours Sepsis New/Unexplained Change in Mental Status Sepsis Action Taken by Nursing Laboratory Data Attestation: I reviewed the patient's lab results. Result diagrams: 01/26/20 23:16 01/26/20 23:16 Lab Results 01/26/20 01/26/20 01/26/20 Range/Units 23:16 23:16 23:16 WBC 8.76 (4.8-10.8) K/uL RBC 4.51 (4.2-5.4) M/uL Hgb 14.0 (12.0-16.0) g/dL Hct 40.3 (37-47) % MCV 89.4 (80-100) fL MCH 31.0 (25-34) pg MCHC 34.7 (32-36) g/dL RDW Std Deviation 38.6 (36.4-46.3) fL RDW Coeff of Derian 11.9 (11.5-14.5) % Plt Count 225 (130-400) K/uL MPV 9.9 (7.4-10.4) fL Immature Gran % (Auto) 0.2 % Neut % (Auto) 80.7 % Lymph % (Auto) 11.2 % Pershing % (Auto) 7.3 % Eos % (Auto) 0.3 % Baso % (Auto) 0.3 % Neut # (Auto) 7.06 H (1.4-6.5) K/uL Lymph # (Auto) 0.98 L (1.2-3.4) K/uL Pershing # (Auto) 0.64 H (0.11-0.59) K/uL Eos # (Auto) 0.03 (0-0.5) K/uL Baso # (Auto) 0.03 (0-0.2) K/uL Immature Gran # (Auto) 0.02 (0.00-0.02) K/uL PT (9.0-12.0) Seconds INR (0.9-1.1) Sodium 141 (136-145) mmol/L Potassium 3.4 L (3.5-5.1) mmol/L Chloride 106 (98-107) mmol/L Carbon Dioxide 26 (21-32) mmol/L Anion Gap 9.0 (3-11) BUN 14 (7-18) mg/dl Creatinine 0.80 (0.6-1.2) mg/dl Est Cr Clr Drug Dosing 109.3 ml/min Est GFR ( Amer) 122.2 Est GFR (Non-Af Amer) 105.4 BUN/Creatinine Ratio 18.0 (10-20) Glucose 111 H (70-99) mg/dl Calcium 9.1 (8.5-10.1) mg/dl Phosphorus 1.6 L (2.5-4.9) mg/dl Magnesium 1.8 (1.8-2.4) mg/dl Total Bilirubin 0.8 (0.2-1) mg/dl Direct Bilirubin 0.4 H (0-0.2) mg/dl AST 3100 H (15-37) U/L ALT 2018 H (12-78) U/L Alkaline Phosphatase 81 (45-117) U/L Total Creatine Kinase (26-192) U/L Total Protein 7.4 (6.4-8.2) gm/dl Albumin 4.2 (3.4-5.0) gm/dl Globulin 3.2 (2.5-4.0) gm/dl Albumin/Globulin Ratio 1.3 (0.9-2) Lipase 80 (73-393) U/L TSH 1.000 (0.300-4.500) uIu/ml HCG, Qual Negative (Negative) Urine Color Urine Appearance (Clear) Urine pH (4.5-7.5) Ur Specific [place] (1.000-1.030) Urine Protein (Negative) Urine Glucose (UA) (Negative) Urine Ketones (Negative) Urine Blood (Negative) Urine Nitrite (Negative) Urine Bilirubin (Negative) Urine Urobilinogen (Negative) Ur Leukocyte Esterase (Negative) Urine WBC (Auto) (0-5) /hpf Urine RBC (Auto) (0-4) /hpf U Hyaline Cast (Auto) (0-5) /lpf U Epithel Cells (Auto) (0-5) /lpf Urine Bacteria (Auto) (Negative) Salicylates (2.8-20) mg/dl Urine Opiates Screen (Neg) Ur Methadone, Qual (Neg) Acetaminophen (10-30) ug/ml Urine Barbiturates (Neg) Ur Phencyclidine (PCP) (Neg) U Amphetamin/Meth Scrn (Neg) MDMA (Ecstasy) Screen (Neg) U Benzodiazepines Scrn (Neg) Ur Cocaine Metabolite (Neg) U Marijuana (THC) Screen (Neg) Ethyl Alcohol mg/dL (0-3) mg/dl Anaplasma Smear See Comment Lyme Disease IgG Ab (Negative) Lyme Disease IgM Ab (Negative) COVID-19 Eval Order COVID-19 PCR (Negative) Hep Bs Antigen (Neg) Hepatitis C Antibody (Neg) Monoscreen (Negative) 01/26/20 01/26/20 01/27/20 Range/Units 23:16 23:16 01:25 WBC (4.8-10.8) K/uL RBC (4.2-5.4) M/uL Hgb (12.0-16.0) g/dL Hct (37-47) % MCV (80-100) fL MCH (25-34) pg MCHC (32-36) g/dL RDW Std Deviation (36.4-46.3) fL RDW Coeff of Derian (11.5-14.5) % Plt Count (130-400) K/uL MPV (7.4-10.4) fL Immature Gran % (Auto) % Neut % (Auto) % Lymph % (Auto) % Pershing % (Auto) % Eos % (Auto) % Baso % (Auto) % Neut # (Auto) (1.4-6.5) K/uL Lymph # (Auto) (1.2-3.4) K/uL Pershing # (Auto) (0.11-0.59) K/uL Eos # (Auto) (0-0.5) K/uL Baso # (Auto) (0-0.2) K/uL Immature Gran # (Auto) (0.00-0.02) K/uL PT 15.1 H (9.0-12.0) Seconds INR 1.5 H (0.9-1.1) Sodium (136-145) mmol/L Potassium (3.5-5.1) mmol/L Chloride (98-107) mmol/L Carbon Dioxide (21-32) mmol/L Anion Gap (3-11) BUN (7-18) mg/dl Creatinine (0.6-1.2) mg/dl Est Cr Clr Drug Dosing ml/min Est GFR ( Amer) Est GFR (Non-Af Amer) BUN/Creatinine Ratio (10-20) Glucose (70-99) mg/dl Calcium (8.5-10.1) mg/dl Phosphorus (2.5-4.9) mg/dl Magnesium (1.8-2.4) mg/dl Total Bilirubin (0.2-1) mg/dl Direct Bilirubin (0-0.2) mg/dl AST (15-37) U/L ALT (12-78) U/L Alkaline Phosphatase (45-117) U/L Total Creatine Kinase (26-192) U/L Total Protein (6.4-8.2) gm/dl Albumin (3.4-5.0) gm/dl Globulin (2.5-4.0) gm/dl Albumin/Globulin Ratio (0.9-2) Lipase (73-393) U/L TSH (0.300-4.500) uIu/ml HCG, Qual (Negative) Urine Color Urine Appearance (Clear) Urine pH (4.5-7.5) Ur Specific [place] (1.000-1.030) Urine Protein (Negative) Urine Glucose (UA) (Negative) Urine Ketones (Negative) Urine Blood (Negative) Urine Nitrite (Negative) Urine Bilirubin (Negative) Urine Urobilinogen (Negative) Ur Leukocyte Esterase (Negative) Urine WBC (Auto) (0-5) /hpf Urine RBC (Auto) (0-4) /hpf U Hyaline Cast (Auto) (0-5) /lpf U Epithel Cells (Auto) (0-5) /lpf Urine Bacteria (Auto) (Negative) Salicylates (2.8-20) mg/dl Urine Opiates Screen (Neg) Ur Methadone, Qual (Neg) Acetaminophen (10-30) ug/ml Urine Barbiturates (Neg) Ur Phencyclidine (PCP) (Neg) U Amphetamin/Meth Scrn (Neg) MDMA (Ecstasy) Screen (Neg) U Benzodiazepines Scrn (Neg) Ur Cocaine Metabolite (Neg) U Marijuana (THC) Screen (Neg) Ethyl Alcohol mg/dL (0-3) mg/dl Anaplasma Smear Lyme Disease IgG Ab (Negative) Lyme Disease IgM Ab (Negative) COVID-19 Eval Order Covid19 Done at [facility] COVID-19 PCR NEGATIVE (Negative) Hep Bs Antigen (Neg) Hepatitis C Antibody (Neg) Monoscreen (Negative) 01/27/20 01/27/20 01/27/20 Range/Units 01:25 01:25 01:25 WBC (4.8-10.8) K/uL RBC (4.2-5.4) M/uL Hgb (12.0-16.0) g/dL Hct (37-47) % MCV (80-100) fL MCH (25-34) pg MCHC (32-36) g/dL RDW Std Deviation (36.4-46.3) fL RDW Coeff of Derian (11.5-14.5) % Plt Count (130-400) K/uL MPV (7.4-10.4) fL Immature Gran % (Auto) % Neut % (Auto) % Lymph % (Auto) % Pershing % (Auto) % Eos % (Auto) % Baso % (Auto) % Neut # (Auto) (1.4-6.5) K/uL Lymph # (Auto) (1.2-3.4) K/uL Pershing # (Auto) (0.11-0.59) K/uL Eos # (Auto) (0-0.5) K/uL Baso # (Auto) (0-0.2) K/uL Immature Gran # (Auto) (0.00-0.02) K/uL PT (9.0-12.0) Seconds INR (0.9-1.1) Sodium (136-145) mmol/L Potassium (3.5-5.1) mmol/L Chloride (98-107) mmol/L Carbon Dioxide (21-32) mmol/L Anion Gap (3-11) BUN (7-18) mg/dl Creatinine (0.6-1.2) mg/dl Est Cr Clr Drug Dosing ml/min Est GFR ( Amer) Est GFR (Non-Af Amer) BUN/Creatinine Ratio (10-20) Glucose (70-99) mg/dl Calcium (8.5-10.1) mg/dl Phosphorus (2.5-4.9) mg/dl Magnesium (1.8-2.4) mg/dl Total Bilirubin (0.2-1) mg/dl Direct Bilirubin (0-0.2) mg/dl AST (15-37) U/L ALT (12-78) U/L Alkaline Phosphatase (45-117) U/L Total Creatine Kinase (26-192) U/L Total Protein (6.4-8.2) gm/dl Albumin (3.4-5.0) gm/dl Globulin (2.5-4.0) gm/dl Albumin/Globulin Ratio (0.9-2) Lipase (73-393) U/L TSH (0.300-4.500) uIu/ml HCG, Qual (Negative) Urine Color Urine Appearance (Clear) Urine pH (4.5-7.5) Ur Specific [place] (1.000-1.030) Urine Protein (Negative) Urine Glucose (UA) (Negative) Urine Ketones (Negative) Urine Blood (Negative) Urine Nitrite (Negative) Urine Bilirubin (Negative) Urine Urobilinogen (Negative) Ur Leukocyte Esterase (Negative) Urine WBC (Auto) (0-5) /hpf Urine RBC (Auto) (0-4) /hpf U Hyaline Cast (Auto) (0-5) /lpf U Epithel Cells (Auto) (0-5) /lpf Urine Bacteria (Auto) (Negative) Salicylates (2.8-20) mg/dl Urine Opiates Screen (Neg) Ur Methadone, Qual (Neg) Acetaminophen (10-30) ug/ml Urine Barbiturates (Neg) Ur Phencyclidine (PCP) (Neg) U Amphetamin/Meth Scrn (Neg) MDMA (Ecstasy) Screen (Neg) U Benzodiazepines Scrn (Neg) Ur Cocaine Metabolite (Neg) U Marijuana (THC) Screen (Neg) Ethyl Alcohol mg/dL < 3.0 (0-3) mg/dl Anaplasma Smear Lyme Disease IgG Ab Negative (Negative) Lyme Disease IgM Ab Negative (Negative) COVID-19 Eval Order COVID-19 PCR (Negative) Hep Bs Antigen Neg (Neg) Hepatitis C Antibody Neg (Neg) Monoscreen Negative (Negative) 01/27/20 01/27/20 01/27/20 Range/Units 02:36 02:39 02:43 WBC (4.8-10.8) K/uL RBC (4.2-5.4) M/uL Hgb (12.0-16.0) g/dL Hct (37-47) % MCV (80-100) fL MCH (25-34) pg MCHC (32-36) g/dL RDW Std Deviation (36.4-46.3) fL RDW Coeff of Derian (11.5-14.5) % Plt Count (130-400) K/uL MPV (7.4-10.4) fL Immature Gran % (Auto) % Neut % (Auto) % Lymph % (Auto) % Pershing % (Auto) % Eos % (Auto) % Baso % (Auto) % Neut # (Auto) (1.4-6.5) K/uL Lymph # (Auto) (1.2-3.4) K/uL Pershing # (Auto) (0.11-0.59) K/uL Eos # (Auto) (0-0.5) K/uL Baso # (Auto) (0-0.2) K/uL Immature Gran # (Auto) (0.00-0.02) K/uL PT (9.0-12.0) Seconds INR (0.9-1.1) Sodium (136-145) mmol/L Potassium (3.5-5.1) mmol/L Chloride (98-107) mmol/L Carbon Dioxide (21-32) mmol/L Anion Gap (3-11) BUN (7-18) mg/dl Creatinine (0.6-1.2) mg/dl Est Cr Clr Drug Dosing ml/min Est GFR ( Amer) Est GFR (Non-Af Amer) BUN/Creatinine Ratio (10-20) Glucose (70-99) mg/dl Calcium (8.5-10.1) mg/dl Phosphorus (2.5-4.9) mg/dl Magnesium (1.8-2.4) mg/dl Total Bilirubin (0.2-1) mg/dl Direct Bilirubin (0-0.2) mg/dl AST (15-37) U/L ALT (12-78) U/L Alkaline Phosphatase (45-117) U/L Total Creatine Kinase 110 (26-192) U/L Total Protein (6.4-8.2) gm/dl Albumin (3.4-5.0) gm/dl Globulin (2.5-4.0) gm/dl Albumin/Globulin Ratio (0.9-2) Lipase (73-393) U/L TSH (0.300-4.500) uIu/ml HCG, Qual (Negative) Urine Color Yellow Urine Appearance Turbid A (Clear) Urine pH >= 9.0 H (4.5-7.5) Ur Specific [place] 1.042 H (1.000-1.030) Urine Protein Negative (Negative) Urine Glucose (UA) Negative (Negative) Urine Ketones Trace H (Negative) Urine Blood 3+ H (Negative) Urine Nitrite Negative (Negative) Urine Bilirubin Negative (Negative) Urine Urobilinogen Negative (Negative) Ur Leukocyte Esterase Negative (Negative) Urine WBC (Auto) 1-5 (0-5) /hpf Urine RBC (Auto) 10-30 H (0-4) /hpf U Hyaline Cast (Auto) 0 (0-5) /lpf U Epithel Cells (Auto) 20-30 H (0-5) /lpf Urine Bacteria (Auto) Negative (Negative) Salicylates < 1.7 L (2.8-20) mg/dl Urine Opiates Screen (Neg) Ur Methadone, Qual (Neg) Acetaminophen < 2 L (10-30) ug/ml Urine Barbiturates (Neg) Ur Phencyclidine (PCP) (Neg) U Amphetamin/Meth Scrn (Neg) MDMA (Ecstasy) Screen (Neg) U Benzodiazepines Scrn (Neg) Ur Cocaine Metabolite (Neg) U Marijuana (THC) Screen (Neg) Ethyl Alcohol mg/dL (0-3) mg/dl Anaplasma Smear Lyme Disease IgG Ab (Negative) Lyme Disease IgM Ab (Negative) COVID-19 Eval Order COVID-19 PCR (Negative) Hep Bs Antigen (Neg) Hepatitis C Antibody (Neg) Monoscreen (Negative) 01/27/20 Range/Units 02:43 WBC (4.8-10.8) K/uL RBC (4.2-5.4) M/uL Hgb (12.0-16.0) g/dL Hct (37-47) % MCV (80-100) fL MCH (25-34) pg MCHC (32-36) g/dL RDW Std Deviation (36.4-46.3) fL RDW Coeff of Derian (11.5-14.5) % Plt Count (130-400) K/uL MPV (7.4-10.4) fL Immature Gran % (Auto) % Neut % (Auto) % Lymph % (Auto) % Pershing % (Auto) % Eos % (Auto) % Baso % (Auto) % Neut # (Auto) (1.4-6.5) K/uL Lymph # (Auto) (1.2-3.4) K/uL [place]hing # (Auto) (0.11-0.59) K/uL Eos # (Auto) (0-0.5) K/uL Baso # (Auto) (0-0.2) K/uL Immature Gran # (Auto) (0.00-0.02) K/uL PT (9.0-12.0) Seconds INR (0.9-1.1) Sodium (136-145) mmol/L Potassium (3.5-5.1) mmol/L Chloride (98-107) mmol/L Carbon Dioxide (21-32) mmol/L Anion Gap (3-11) BUN (7-18) mg/dl Creatinine (0.6-1.2) mg/dl Est Cr Clr Drug Dosing ml/min Est GFR ( Amer) Est GFR (Non-Af Amer) BUN/Creatinine Ratio (10-20) Glucose (70-99) mg/dl Calcium (8.5-10.1) mg/dl Phosphorus (2.5-4.9) mg/dl Magnesium (1.8-2.4) mg/dl Total Bilirubin (0.2-1) mg/dl Direct Bilirubin (0-0.2) mg/dl AST (15-37) U/L ALT (12-78) U/L Alkaline Phosphatase (45-117) U/L Total Creatine Kinase (26-192) U/L Total Protein (6.4-8.2) gm/dl Albumin (3.4-5.0) gm/dl Globulin (2.5-4.0) gm/dl Albumin/Globulin Ratio (0.9-2) Lipase (73-393) U/L TSH (0.300-4.500) uIu/ml HCG, Qual (Negative) Urine Color Urine Appearance (Clear) Urine pH (4.5-7.5) Ur Specific [place] (1.000-1.030) Urine Protein (Negative) Urine Glucose (UA) (Negative) Urine Ketones (Negative) Urine Blood (Negative) Urine Nitrite (Negative) Urine Bilirubin (Negative) Urine Urobilinogen (Negative) Ur Leukocyte Esterase (Negative) Urine WBC (Auto) (0-5) /hpf Urine RBC (Auto) (0-4) /hpf U Hyaline Cast (Auto) (0-5) /lpf U Epithel Cells (Auto) (0-5) /lpf Urine Bacteria (Auto) (Negative) Salicylates (2.8-20) mg/dl Urine Opiates Screen Neg (Neg) Ur Methadone, Qual Neg (Neg) Acetaminophen (10-30) ug/ml Urine Barbiturates Neg (Neg) Ur Phencyclidine (PCP) Neg (Neg) U Amphetamin/Meth Scrn Neg (Neg) MDMA (Ecstasy) Screen Neg (Neg) U Benzodiazepines Scrn Neg (Neg) Ur Cocaine Metabolite Neg (Neg) U Marijuana (THC) Screen Pos H (Neg) Ethyl Alcohol mg/dL (0-3) mg/dl Anaplasma Smear Lyme Disease IgG Ab (Negative) Lyme Disease IgM Ab (Negative) COVID-19 Eval Order COVID-19 PCR (Negative) Hep Bs Antigen (Neg) Hepatitis C Antibody (Neg) Monoscreen (Negative) Administered Medications Lactated Ringer's (Lr) 1,000 mls @ 125 mls/hr IV .Q8H TITUS Stop: 02/26/20 02:59 Last Admin: 01/27/20 03:00 Dose: 125 mls/hr Documented by: [id number] Promethazine HCl (Phenergan) 25 mg in 51 mls @ 204 mls/hr IV NOW STA Stop: 01/27/20 05:14 Last Admin: 01/27/20 05:05 Dose: 204 mls/hr Documented by: [id number] Discontinued Medications Sodium Chloride (Nss 1000ml) 2,000 mls @ 999 mls/hr IV .Q2H1M ONE Stop: 01/27/20 01:03 Last Infusion: 01/27/20 01:06 Dose: 0 mls/hr Documented by: [id number] Admin: 01/26/20 23:20 Dose: 999 mls/hr Documented by: [id number] Famotidine (Pepcid 20mg Iv Push) 20 mg in 5 mls @ 2.5 mls/min IV NOW STA Stop: 01/26/20 23:04 Last Admin: 01/26/20 23:20 Dose: 2.5 mls/min Documented by: [id number] Magnesium Sulfate/Dextrose (Magnesium Sulfate / D5w) 1 gm in 100 mls @ 100 mls/hr IV NOW STA Stop: 01/27/20 02:10 Last Infusion: 01/27/20 02:43 Dose: 0 mls/hr Documented by: [id number] Admin: 01/27/20 01:47 Dose: 100 mls/hr Documented by: [id number] Potassium Phosphate 6 mmol/ (Sodium Chloride) 102 mls @ 88 mls/hr IV ONE ONE Stop: 01/27/20 02:54 Last Infusion: 01/27/20 02:56 Dose: 0 mls/hr Documented by: [id number] Admin: 01/27/20 01:47 Dose: 88 mls/hr Documented by: [id number] Acetylcysteine 11,030 mg/ (Dextrose) 255.15 mls @ 200 mls/hr IV ONCE ONE Stop: 01/27/20 04:33 Last Admin: 01/27/20 03:54 Dose: 200 mls/hr Documented by: [id number] Ioversol (Ioversol 100ml) 100 ml IV ONCE ONE Stop: 01/27/20 00:08 Last Admin: 01/27/20 00:07 Dose: 92 ml Documented by: [id number] Ondansetron HCl (Ondansetron Inj 2 Mg/Ml 2 Ml Vial) 4 mg IV NOW STA Stop: 01/26/20 23:04 Last Admin: 01/26/20 23:20 Dose: 4 mg Documented by: [id number] Potassium Phosphate (Potassium Phos 3 Mmol/1 Ml Infusion) 6 mmol IV NOW STA Stop: 01/27/20 01:10 Last Admin: 01/27/20 01:47 Dose: 6 mmol Documented by: [id number] Potassium Phosphate (Pot Phosphate Monobasic W/ Sod Tab) 2 tab PO NOW STA Stop: 01/27/20 01:10 Last Admin: 01/27/20 01:47 Dose: 2 tab Documented by: [id number] Discharge Plan Visit Data Chief Complaint: Diarrhea Stated Complaint: DIARRHEA, VOMITING ED Provider: Ish Luther Discharge Problem: Transaminitis, Hypokalemia, Gastroenteritis, Hypophosphatemia, Hypomagnesemia, Elevated INR Patient Disposition: Still a Patient Forms Stand Alone Forms: My [facility] [address] Prescriptions Prescriptions: No Action bupropion HCl 300 mg tablet extended release 24 hr 300 mg PO DAILY RF: 0 Trintellix 10 mg tablet 10 mg PO DAILY RF: 0 Referrals Referrals: James Marie MD [Primary Care Provider] -
[2020-01-27] MEDS ORDERED: POT PHOSPHATE MONOBASIC W/ SOD TAB PO STA (01:09)
[2020-01-27] MEDS ORDERED: POTASSIUM PHOS 3 MMOL/1 ML INFUSION IV STA (01:09)
[2020-01-27] MEDS ORDERED: MAGNESIUM SULFATE / D5W 1 GM/100 ML BAG IV STA (01:11)
[2020-01-27] MEDS ORDERED: POTASSIUM PHOSPHATE 6 MMOL in 0.9 % SODIUM CHLORIDE 100 ML IV ONE (01:45)
[2020-01-27 02:10] LABS: INR 1.5 (0.9-1.1); Prothrombin Time 15.1 Seconds (9.0-12.0)
[2020-01-27 02:27] LABS: Monotest Negative (Negative)
[2020-01-27 02:33] LABS: Hepatitis B Surface Antigen Neg (Neg)
[2020-01-27 02:55] LABS: Lyme Ab IgG w/WB Rflx Negative (Negative); Lyme Ab IgM w/WB Rflx Negative (Negative)
[2020-01-27 03:00] LABS: Appearance Urine Turbid (Clear); Bacteria Urine Automated Negative (Negative); Bilirubin Urine Negative (Negative); Blood Urine 3+ (Negative); Cast Urine Automated 0 /lpf (0-5); Color Urine Yellow; Epithelial Cell Urine Auto 20-30 /lpf (0-5); Glucose Urine UA Negative (Negative); Ketones Urine Trace (Negative); Leukocyte Esterase Urine Negative (Negative); Nitrite Urine Negative (Negative); Specific Gravity Urine 1.042 (1.000-1.030); Urobilinogen Urine Negative (Negative); pH Urine >= 9.0 (4.5-7.5)
[2020-01-27] MEDS ORDERED: LACTATED RINGER'S 1,000 ML IV SCH (03:00)
--- NOTE | 2020-01-27 03:00 | History & Physical Report ---
Date of Service January 27, 2020 Assessment & Plan (1) Transaminitis: Sharron is a 19-year-old female with past medical history of anxiety and depression who presents with [] and is found to have transminitis with AST 3000, ALT 2000 on admission follow alcohol use. Acute Hepatic Failure with Transaminitis, elevated INR AST 3000, ALT 2000 CT scan shows no acute pathology, no liver abnormality Patient reports high alcohol intake (6 mixed drinks with gin) prior to onset of symptoms - Ethyl Alcohol negative on admission - Febrile to 38.3 on admission - HepB sAg negative, hep a pending, hep C pending. Monoscreen negative. INR 1.5 [] Signs of hepatic encephalopathy Tylenol level [] Salicylate level [] - COVID [] - UTox [] - CK [] - GI [] DVT PPx: FENGI: Disposition: Code Status: (2) Anxiety: (3) Depression: (4) Alcohol use: History of Present Illness Primary Care Provider: James Marie MD Allergies Allergy/AdvReac Type Severity Reaction Status Date / Time amoxicillin Allergy Mild Rash Verified 01/26/20 23:15 Home Medications Home Medications Medication Instructions Recorded Confirmed Type bupropion HCl 300 mg PO DAILY 01/26/20 01/26/20 History vortioxetine [Trintellix] 10 mg PO DAILY 01/26/20 01/26/20 History Past Med/Surg History Medical History (Updated 01/27/20 @ 01:07 by Scott Johnson MD) Anemia D/T HEAVY MENSES Anxiety Depression No chronic diseases present Surgical History H/O wisdom tooth extraction Family History Grandmother (Maternal) Family history of diabetes mellitus Social History Smoking Status: Current some day smoker Second Hand Exposure: No; Hx Alcohol Use: Yes Alcohol type: hard liquor Hx Substance Use: Yes (USES OCCASIONALLY) Last Used Substance Other:: 07/21/18 Preferred Language: Croatian Communication Ability: Effective Ct Scan Technician Required: No Beliefs That Will Affect Care: None Current Living Situation: Family and Other Current Living Situation Comment: Roommates Feels Safe at Home: Yes Assistive Devices: Glasses Results & Data Results & Data ([facility]) Vital Signs (Past 12 Hours) Vital Signs Temp Pulse Pulse Resp BP BP Pulse Ox 01/27/20 02:39 93 H 18 124/81 98 01/27/20 01:47 99 H 19 124/79 98 01/27/20 01:08 97 H 19 121/72 99 01/26/20 22:28 38.3 C H 107 H 17 135/85 98
[2020-01-27 03:02] LABS: Hepatitis C IgG 13Yrs+Old_Rflx Neg (Neg)
[2020-01-27 03:04] LABS: Protein Urine Negative (Negative); Sulfosalicylic Acid Urine Negative (Negative)
[2020-01-27 03:17] LABS: Acetaminophen < 2 ug/ml (10-30); Salicylate < 1.7 mg/dl (2.8-20)
[2020-01-27] MEDS ORDERED: ACETYLCYSTEINE IV ONE ×3 (03:17→08:18)
[2020-01-27] MEDS ORDERED: AcetylCYSTEINE IV 21 HR REGIMEN (>40KG) IV STA (03:17)
[2020-01-27] MEDS ORDERED: DEXTROSE 5% IV ONE ×3 (03:17→08:18)
[2020-01-27 03:29] LABS: Amphetamines+Metham, Urine Neg (Neg); Barbiturates, Urine Neg (Neg); Benzodiazepine, Urine Neg (Neg); Cocaine, Urine Neg (Neg); MDMA (Ecstacy), Urine Neg (Neg); Methadone, Urine Neg (Neg); Opiate, Urine Neg (Neg); Phencyclidine, Urine Neg (Neg)
--- NOTE | 2020-01-27 03:48 | Emergency Department Note ---
ED Visit Note ED Physician Sign Out Note: 19 yr old healthy female without PMH arrives for evaluation of generalized febrile illness earlier in evening. Evaluated by Dr Johnson and workup with labs, ct a/p, UA remarkable for transaminitis with mild INR elevation in setting of fever. Covid here is negative. He reviewed this with Hospitalist, who in turn reviewed with with [facility] and advised NAC and transfer. I was asked to facility transfer and thus evaluated patient who is feeling well and in no distress. She is no longer febrile, feels comfortable and denies any complaints. Admits recent ETOH use but not regular use, no tylenol use and no known infectious contacts. Patient and mother comfortable with transfer to [place]. Discussed case with with Dr Cornell at [place] who requested I discuss case further with Jeanie BENTON. Discussed with Dr Frances who notes that no beds currently available other than ICU level at [place], and if patient not encephalopathic and otherwise stable, would likely not need ICU at this time. Plan will be to continue monitoring at this facility and have GI evaluate her here. A short while later patient vomited multiple time forcefully. There was gastric contents and no blood, however she started vomiting again at the same time her nose started bleeding. This was followed by multiple fist sized bouts of e mesis. Reviewed with GI Jeanie who agree with Vit K, Protonix and to have GI eval here. EKG obtained and I'll note prolonged QTC thus avoid Zofran and instead Phenergan given. Dr Hernandez contacted by me and he will come eval in ED. Requested IV reglan 10mg be given. Patient and mother updated at bedside. Repeat labs obtained. Patient feeling much better and sleeping post meds. Vitals with HR 100, BP 107/70, and sats 96% on room air. Soft, non-tender abdomen and breathing comfortably. Taken to OR emergently for evaluation of hematemesis. Per My Interpretation: Indication Vomiting: NSR 84 bpm, qtc 496. No Ectopy. No Ischemia. No previous EKG for comparison. Critical Care: I have personally spent 35 minutes of critical care time in the direct management of this patient. Acute hepatitis with upper GI bleed in setting of coagulation deficiency requiring extensive bedside management and sr technical sales consultant discussions. This was a life/limb threatening event. This 35 minutes is in excess of all separately billable procedures. Ish Luther MD
--- NOTE | 2020-01-27 03:54 | Hospitalist Consultation ---
Date of Consultation January 27, 2020 Assessment & Plan (1) Transaminitis: Sharron is a 19-year-old female with past medical history of anxiety and depression who presents with general unwellness and is found to have transaminitis with AST 3000, ALT 2000 on admission follow following alcohol use highly concerning for acute liver failure. Acute Hepatic Failure with Transaminitis, elevated INR AST 3000, ALT 2000 CT scan shows no acute findings, no liver abnormalities. Lack of chronic fi ndings with acute lab abnormalities suggest severe acute liver disease. Patient reports high alcohol intake (6 mixed drinks with gin) prior to onset of symptoms - Ethyl Alcohol negative on admission - Febrile to 38.3 on admission - HepB sAg negative, hep a pending, hep C pending. Monoscreen negative. INR 1.5 No signs of encephalopathy Tylenol level negative Salicylate negative - COVID negative - UTox positive for marijuana - CK pending Case discussed with Dr. Hernandez with on-call gastroenterology. Patient's high transaminitis and elevated INR suggestive of synthetic dysfunction are extremely concerning for acute hepatic failure. It was recommended she be transferred to higher level of care, and that she be started on N-acetylcysteine protocol prior to transfer. NAC protocol initiated by ED provider Patient recommended for transfer to [facility]. Discussed with patient with her mother at bedside, patient and family agreeable with plan. Supervising Physician Co-Signing Physician Notes The patient's note was initially done as a consultation, as it was felt that the patient would be transferred to [facility]. However, when the transfer was not approved by [place], the patient was instead made admission status, and an H&P has been completed on the chart. History of Present Illness Reason for Consultation: Fatigue, general unwellness Requesting Physician: Dr. Johnson Attending Physician: Dr. Martinez History of Present Illness Sharron is a 19yo F with a past medical history of anxiety/depression who presents with feelings of general unwellness the day following an episode of high alcohol use. Her labs are concerning for acute hepatic failure. She reports that she started feeling poorly at around 6 PM the night of admission. She developed fatigue, headache, and a feeling of hot/cold alternation with some shortness of breath. She reports she felt generally well prior to this, but the night prior she had gone out and had up to 6 drinks with Gin with an unmeasured amount of alcohol in each drink. She reports that this is more than she normally drinks, normally drinks approximately twice a month with a couple of drinks per episode. She denies any other recent illness, and has not had any fevers/chills/nausea/vomiting/diarrhea/constipation/abdominal pain prior to this episode. She has been nauseous but has not vomited with her current episode. 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 None of her housemates have been sick, and she has no sick contacts. She has taken her bupropion and Trintellix as prescribed, denies other medication use or intentional ingestions. She reports she has taken 1 ibuprofen for headache, otherwise has not used any [id number] medications. She has had no medication changes recently. She does not use tobacco products. She uses marijuana occasionally, last a couple of days ago. She denies muscle aches and muscle pains. Medical history: Reviewed Surgical history: Reviewed Medications: Reviewed, bupropion and Trintellix without recent changes. Medication allergies: Amoxicillin, rash Family history: Patient denies family history of liver disease, autoimmune disease. CODE STATUS: Full code Allergies Allergy/AdvReac Type Severity Reaction Status Date / Time amoxicillin Allergy Mild Rash Verified 01/26/20 23:15 Home Medications Home Medications Medication Instructions Recorded Confirmed Type Trintellix 10 mg PO DAILY 01/26/20 01/26/20 History bupropion HCl 300 mg PO DAILY 01/26/20 01/26/20 History Patient History Medical History Acute hepatic failure Anemia D/T HEAVY MENSES Anxiety Depression Marijuana use Smoker Surgical History H/O wisdom tooth extraction Family History Grandmother (Maternal) Family history of diabetes mellitus Social History Smoking Status: Current some day smoker Second Hand Exposure: No; Hx Alcohol Use: Yes Alcohol type: hard liquor Hx Substance Use: Yes Last Used Substance: Days (ago) Last Used Substance Other:: 07/21/18 Preferred Language: Macedonian Communication Ability: Effective Government Affairs Researcher Required: No Beliefs That Will Affect Care: None Current Living Situation: Other Current Living Situation Comment: [employer] students Feels Safe at Home: Yes Assistive Devices: None Review of Systems Review of Systems: Constitutional: See HPI Eyes: Denies vision change ENT: Denies ear pain, sore throat, sinus pain Cardiovascular: Denies Chest pain, chest pressure, palpitations Respiratory: Dorsal shortness of breath with fatigue, denies sputum production, difficulty breathing Gastrointestinal: See HPI Genitourinary: Denies pain with urination, urinary urgency, urinary frequency Musculoskeletal: See HPI Integumentary:Denies rash, lesions, bruising Neurological: Endorses mild headache, some tingling in her feet. Denies focal weakness. Physical Exam Physical Exam: General: A&Ox3. NAD. Cooperative. HEENT: Atraumatic, normocephalic. No scleral icterus. No jaundice. Pulm: CTAB A&P. -wheezes, -rales, -rhonchi. Symmetrical chest rise. No increase work of breathing. No respiratory distress. Cardiac: RRR, -mrg. Radial pulses intact and symmetrical. Abdominal: Nontender, nondistended, soft. BS present. CRANIAL NERVES: II: Pupils equal and reactive, no relative afferent pupillary defect, no VF cuts III, IV, : EOM intact, no gaze preference or deviation, no nystagmus. V: normal sensation in V1, V2, and V3 segments bilaterally VII: no asymmetry, no nasolabial fold flattening VIII: normal hearing to speech IX, X: normal palatal elevation, no uvular deviation XI: 5/5 head turn and 5/5 shoulder shrug bilaterally XII: midline tongue protrusion Results & Data Results & Data ([facility]) Vital Signs (Past 12 Hours) Vital Signs Temp Pulse Pulse Resp BP BP Pulse Ox 01/27/20 03:07 98 01/27/20 03:06 37 C 01/27/20 02:39 93 H 18 124/81 98 01/27/20 01:47 99 H 19 124/79 98 01/27/20 01:08 97 H 19 121/72 99 01/26/20 22:28 38.3 C H 107 H 17 135/85 98 Resident Activity Tracking Resident Involvement: Resident Care Provided Care Provided: Adult [facility] Medicine
--- NOTE | 2020-01-27 04:51 | History & Physical Report ---
Date of Service January 27, 2020 Assessment & Plan (1) Transaminitis: Sharron is a 19-year-old female with past medical history of anxiety and depression who presents with general unwellness and is found to have transaminitis with AST 3000, ALT 2000 on admission follow following alcohol use highly concerning for acute liver failure. Acute Hepatic Failure with Transaminitis, elevated INR AST 3000, ALT 2000 CT scan shows no acute findings, no liver abnormalities. Lack of chronic findings with acute lab abnormalities suggest severe acute liver disease. Patient reports high alcohol intake (6 mixed drinks with gin) prior to onset of symptoms - Ethyl Alcohol negative on admission - Febrile to 38.3 on admission - HepB sAg negative, hep a pending, hep C pending. Monoscreen negative. INR 1.5 No signs of encephalopathy Tylenol level negative Salicylate negative - COVID negative - UTox positive for marijuana - CK pending Case discussed with Dr. Hernandez with on-call gastroenterology. Patient's high transaminitis and elevated INR suggestive of synthetic dysfunction are extremely concerning for acute hepatic failure. It was recommended she be transferred to higher level of care, and that she be started on N-acetylcysteine protocol prior to transfer. - Case discussed with [facility] and [place] for transfer, transfer declined by [facility]. Continue NAC protocol - Vitamin K PO 5mg - GI Consulted - See DVT notes below FENGI: Regular. Normosol 125cc/hr DVT PPx: SCDs. Pt may be at increased risk of DVT in the setting of hepatic dysfunction despite elevated INR 1.5. Heme consult placed for evaluation of clotting/bleeding risk and ppx. Dispo: PCU Code Status: Full Code History of Present Illness Chief Complaint: Fatigue, General Weakness Primary Care Provider: James Marie MD Pt initially recommended for transfer to [facility] pt declined for transfer. Below is copy and pasted from initial Hospitalist Consult for coding as HPI. A&P updated. Sharron is a 19yo F with a past medical history of anxiety/depression who presents with feelings of general unwellness the day following an episode of high alcohol use. Her labs are concerning for acute hepatic failure. She reports that she started feeling poorly at around 6 PM the night of admission. She developed fatigue, headache, and a feeling of hot/cold alternation with some shortness of breath. She reports she felt generally well prior to this, but the night prior she had gone out and had up to 6 drinks with Gin with an unmeasured amount of alcohol in each drink. She reports that this is more than she normally drinks, normally drinks approximately twice a month with a couple of drinks per episode. She denies any other recent illness, and has not had any fevers/chills/nausea/vomiting/diarrhea/constipation/abdominal pain prior to this episode. She has been nauseous but has not vomited with her current episode. 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 None of her housemates have been sick, and she has no sick contacts. She has taken her bupropion and Trintellix as prescribed, denies other medication use or intentional ingestions. She reports she has taken 1 ibuprofen for headache, otherwise has not used any [id number]-[id number] medications. She has had no medication changes recently. She does not use tobacco products. She uses marijuana occasionally, last a couple of days ago. She denies muscle aches and muscle pains. Medical history: Reviewed Surgical history: Reviewed Medications: Reviewed, bupropion and Trintellix without recent changes. Medication allergies: Amoxicillin, rash Family history: Patient denies family history of liver disease, autoimmune disease. CODE STATUS: Full code Allergies Allergy/AdvReac Type Severity Reaction Status Date / Time amoxicillin Allergy Mild Rash Verified 01/26/20 23:15 Home Medications Home Medications Medication Instructions Recorded Confirmed Type Trintellix 10 mg PO DAILY 01/26/20 01/26/20 History bupropion HCl 300 mg PO DAILY 01/26/20 01/26/20 History Past Med/Surg History Medical History Acute hepatic failure Anemia D/T HEAVY MENSES Anxiety Depression Marijuana use Smoker Surgical History H/O wisdom tooth extraction Family History Grandmother (Maternal) Family history of diabetes mellitus Social History Smoking Status: Current some day smoker Second Hand Exposure: No; Hx Alcohol Use: Yes Alcohol type: hard liquor Hx Substance Use: Yes Last Used Substance: Days (ago) Last Used Substance Other:: 07/21/18 Preferred Language: Montenegrin Communication Ability: Effective Principal Architect Required: No Beliefs That Will Affect Care: None Current Living Situation: Other Current Living Situation Comment: [employer] students Feels Safe at Home: Yes Assistive Devices: None Review of Systems Review of Systems: Constitutional: See HPI Eyes: Denies vision change ENT: Denies ear pain, sore throat, sinus pain Cardiovascular: Denies Chest pain, chest pressure, palpitations Respiratory: Dorsal shortness of breath with fatigue, denies sputum production, difficulty breathing Gastrointestinal: See HPI Genitourinary: Denies pain with urination, urinary urgency, urinary frequency Musculoskeletal: See HPI Integumentary:Denies rash, lesions, bruising Neurological: Endorses mild headache, some tingling in her feet. Denies focal weakness. Physical Exam Physical Exam: General: A&Ox3. NAD. Cooperative. HEENT: Atraumatic, normocephalic. No scleral icterus. No jaundice. Pulm: CTAB A&P. -wheezes, -rales, -rhonchi. Symmetrical chest rise. No increase work of breathing. No respiratory distress. Cardiac: RRR, -mrg. Radial pulses intact and symmetrical. Abdominal: Nontender, nondistended, soft. BS present. CRANIAL NERVES: II: Pupils equal and reactive, no relative afferent pupillary defect, no VF cuts III, IV, : EOM intact, no gaze preference or deviation, no nystagmus. V: normal sensation in V1, V2, and V3 segments bilaterally VII: no asymmetry, no nasolabial fold flattening VIII: normal hearing to speech IX, X: normal palatal elevation, no uvular deviation XI: 5/5 head turn and 5/5 shoulder shrug bilaterally XII: midline tongue protrusion Results & Data Results & Data ([facility]) Vital Signs (Past 12 Hours) Vital Signs Temp Pulse Pulse Resp BP BP Pulse Ox 01/27/20 04:00 84 18 130/83 98 01/27/20 03:07 98 01/27/20 03:06 37 C 01/27/20 02:39 93 H 18 124/81 98 01/27/20 01:47 99 H 19 124/79 98 01/27/20 01:08 97 H 19 121/72 99 01/26/20 22:28 38.3 C H 107 H 17 135/85 98 Supervising Physician Co-Signing Physician Notes Attending addendum: I have physically seen this patient, have supervised the medical residents activities, and agree with the H&P unless as otherwise noted. Assessment and Plan: Acute liver failure/question fulminant liver failure/coagulopathy- When initially asked to see the patient by the emergency department, after reviewing her work-up, my advice was the patient be transferred to [facility] where there was a charging car operator to follow patient in the event that her liver function completely failed, and that she would need an urgent liver transplant. The transfer was refused by [facility]. The patient will therefore be admitted to PCU for close monitoring. Laboratory work-up negative at this point, except for urine drug screen being positive for marijuana. The case was discussed with on-call gastroenterology Dr. Hernandez, who agreed with our assessment and recommendation for transfer. We will reassess patient in a.m. Remainder of orders and notations as noted Resident Activity Tracking Resident Involvement: Resident Care Provided Care Provided: Adult Hospital Medicine
[2020-01-27] MEDS ORDERED: PROMETHAZINE 25 MG/51 ML BAG IV STA (05:00)
[2020-01-27] MEDS ORDERED: PHYTONADIONE 5 MG in SODIUM CHLORIDE 0.9% 50 ML IV ONE ×2 (05:07→05:10)
[2020-01-27] MEDS ORDERED: SODIUM CHLORIDE 0.9% 250 ML IV PRN ×2 (05:07→05:16)
[2020-01-27] MEDS ORDERED: PANTOprazole 80 MG in DEXTROSE 5% 100 ML IV STA (05:07)
[2020-01-27] MEDS ORDERED: cefTRIAXone SODIUM 2,000 MG/70 ML BAG IV STA (05:19)
[2020-01-27] MEDS ORDERED: METOCLOPRAMIDE HCL INJ 5 MG/ML 2 ML VIAL IV STA (05:19)
[2020-01-27 05:44] LABS: Basophils # (auto) 0.01 K/uL (0-0.2); Basophils % (auto) 0.1 %; Eosinophils # (auto) 0.01 K/uL (0-0.5); Eosinophils % (auto) 0.1 %; Hematocrit (blood only) 37.4 % (37-47); Hemoglobin 13.1 g/dL (12.0-16.0); Immature Granulocytes # (auto) 0.02 K/uL (0.00-0.02); Immature Granulocytes % (auto) 0.2 %; Lymphocytes # (auto) 1.16 K/uL (1.2-3.4); Lymphocytes % (auto) 13.1 %; Mean Corpuscular Hemoglobin 31.4 pg (25-34); Mean Corpuscular Volume 89.7 fL (80-100); Monocytes # (auto) 0.23 K/uL (0.11-0.59); Monocytes % (auto) 2.6 %; Neutrophils # (auto) 7.44 K/uL (1.4-6.5); Neutrophils % (auto) 83.9 %; Platelet Count 256 K/uL (130-400); Red Blood Count 4.17 M/uL (4.2-5.4); White Blood Count 8.87 K/uL (4.8-10.8)
[2020-01-27 05:52] LABS: INR 1.6 (0.9-1.1); Partial Thromboplastin Ratio 1.2; Partial Thromboplastin Time 32.8 Seconds (21.0-31.0); Prothrombin Time 16.1 Seconds (9.0-12.0)
[2020-01-27 06:15] LABS: Albumin Level 3.5 gm/dl (3.4-5.0); BUN Creatinine Ratio 13.4 (10-20); Bilirubin Direct 0.4 mg/dl (0-0.2); Calcium 7.7 mg/dl (8.5-10.1); Creatinine Clr Calc Pharmacy 130.5 ml/min; Est GFR (African American) 145.6; Est GFR (Non-African American) 125.7; Potassium 3.5 mmol/L (3.5-5.1)
[2020-01-27 06:27] LABS: Bilirubin,Total 1.1 mg/dl (0.2-1); Total Protein 6.3 gm/dl (6.4-8.2)
--- NOTE | 2020-01-27 06:32 | Anesthesiology Consultation ---
Date of Service January 27, 2020 Covid 19 negative today. The patient came in with acute alcohol intoxication and acute hepatic toxicity. The case was discussed with Dr. Melton who will be the anesthesiologist for the procedure. Assessment & Plan (1) Encounter for pre-operative examination: Chart Review Chart Review: Acceptable Risk for Surgery (necessary surgery) and Patient NOT seen in Pre Admission Testing Consults Requested none History Surgery Operation Date: 01/27/20 06:30 Proposed Procedures p Esophagogastroduodenoscopy - Satya Hernandez MD Operation Date: 01/27/20 07:20 Proposed Procedures p Esophagogastroduodenoscopy - Satya Hernandez MD Height/Weight Height: 5 ft 4 in Weight: 73.5 kg Allergies Allergy/AdvReac Type Severity Reaction Status Date / Time amoxicillin Allergy Mild Rash Verified 01/26/20 23:15 Medications Home Medications Medication Instructions Recorded Confirmed Last Taken bupropion HCl 300 mg PO DAILY 01/26/20 01/26/20 Unknown vortioxetine [Trintellix] 10 mg PO DAILY 01/26/20 01/26/20 Unknown Active Medications Generic Name Dose Route Start Last Admin Trade Name Freq PRN Reason Stop Dose Admin Lactated Ringer's 1,000 mls @ 125 mls/hr 01/27/20 03:00 01/27/20 03:00 Lr IV 02/26/20 02:59 125 mls/hr .Q8H TITUS Administration Acetylcysteine 3,680 mg/ 518.4 mls @ 125 mls/hr 01/27/20 04:18 01/27/20 05:17 Dextrose IV 01/27/20 08:26 125 mls/hr ONCE ONE Administration Past Medical History Medical History Acute hepatic failure Anemia D/T HEAVY MENSES Anxiety Depression Marijuana use Smoker Past Family History Family History Grandmother (Maternal) Family history of diabetes mellitus Past Surgical History Surgical History H/O wisdom tooth extraction Social History Smoking Status: Current some day smoker Hx Alcohol Use: Yes Alcohol type: hard liquor alcohol intake frequency: a few times a month Hx Substance Use: Yes (USES OCCASIONALLY) substance use type: marijuana Last Used Substance Other:: 4/27/19 Physical Exam Vital Signs Last Vital Signs Temp 36.9 C 01/27/20 06:37 Pulse 97 H 01/27/20 06:37 Resp 16 01/27/20 06:37 BP 109/63 01/27/20 06:32 Pulse Ox 100 01/27/20 06:37 Testing Laboratory Results 01/27/20 05:25 01/27/20 05:25 PT 16.1 Seconds (9.0-12.0) H 01/27/20 05:25 INR 1.6 (0.9-1.1) H 01/27/20 05:25 APTT 32.8 Seconds (21.0-31.0) H 01/27/20 05:25 Urine Color Yellow 01/27/20 02:43 Urine Appearance Turbid (Clear) A 01/27/20 02:43 Urine pH >= 9.0 (4.5-7.5) H 01/27/20 02:43 Ur Specific [place] 1.042 (1.000-1.030) H 01/27/20 02:43 Urine Protein Negative (Negative) 01/27/20 02:43 Urine Glucose (UA) Negative (Negative) 01/27/20 02:43 Urine Ketones Trace (Negative) H 01/27/20 02:43 Urine Nitrite Negative (Negative) 01/27/20 02:43 Ur Leukocyte Esterase Negative (Negative) 01/27/20 02:43 Urine WBC (Auto) 1-5 /hpf (0-5) 01/27/20 02:43 Urine RBC (Auto) 10-30 /hpf (0-4) H 01/27/20 02:43 U Hyaline Cast (Auto) 0 /lpf (0-5) 01/27/20 02:43 U Epithel Cells (Auto) 20-30 /lpf (0-5) H 01/27/20 02:43 Urine Bacteria (Auto) Negative (Negative) 01/27/20 02:43 Blood Type B Positive 01/27/20 05:16 Antibody Screen NEGATIVE 01/27/20 05:16 Laboratory Tests 01/27/20 01/27/20 01/27/20 02:39 02:43 05:25 Glucose 153 H Calcium 7.7 L D Total Bilirubin 1.1 H Direct Bilirubin 0.4 H AST 2864 H ALT 2514 H Alkaline Phosphatase 68 Total Creatine Kinase 110 Total Protein 6.3 L Albumin 3.5 U Marijuana (THC) Screen Pos H HCG negative
[2020-01-27] MEDS ORDERED: fentaNYL citrate 100 MCG/2 ML VIAL ONE (07:00)
[2020-01-27] MEDS ORDERED: PROPOFOL IV EMULSION 10 MG/ML 20 ML VIAL IV ONE (07:00)
[2020-01-27] MEDS ORDERED: SUCCINYLCHOLINE CHLORIDE 20 MG/ML 10 ML VIAL IV ONE (07:00)
[2020-01-27] MEDS ORDERED: LIDOCAINE 2% 20 MG/ML 5 ML SYR IV ONE (07:00)
--- NOTE | 2020-01-27 07:14 | Gastrointestinal Consultation ---
Date of Consultation January 27, 2020 Assessment & Plan (1) Acute hepatic failure: (2) Hematemesis: unclear etiology, possibly ETOH induced liver failure. suspect eliseo bello tear vs. ulcer for her hematemesis Recs: --NPO --EGD now to further evaluate --continue NAC protocol for liver failure --supportive care -trend LFTs and INR. --recommend transfer to tertiary care liver transplant center ([facility], [place], etc.) when available rest as per primary team Thank you for allowing me to participate in the care of this patient History of Present Illness History of Present Illness 19yo F with a past medical history of anxiety/depression who presents with feelings of general unwellness the day following an episode of high alcohol use. GI consulted for acute liver failure. She developed fatigue, headache and fevers with dyspnea. Reportedly had up to 6 drinks with Gin. In the ER she developed multiple episodes of hematemesis and some hematochezia. INR 1.6, severe transaminitis noted consistent with acute liver failure. No sick contacts, no family hx liver disease nor liver cancer. labs reviewed. Allergies Allergy/AdvReac Type Severity Reaction Status Date / Time amoxicillin Allergy Mild Rash Verified 01/26/20 23:15 Home Medications Home Medications Medication Instructions Recorded Confirmed Type bupropion HCl 300 mg PO DAILY 01/26/20 01/26/20 History vortioxetine [Trintellix] 10 mg PO DAILY 01/26/20 01/26/20 History Patient History Medical History Acute hepatic failure Anemia D/T HEAVY MENSES Anxiety Depression Marijuana use Smoker Surgical History H/O wisdom tooth extraction Family History Grandmother (Maternal) Family history of diabetes mellitus Social History Smoking Status: Current some day smoker Second Hand Exposure: No; Hx Alcohol Use: Yes Alcohol type: hard liquor Hx Substance Use: Yes (USES OCCASIONALLY) Last Used Substance Other:: 07/21/18 Preferred Language: Ukrainian Communication Ability: Effective Banquet Manager Required: No Beliefs That Will Affect Care: None Current Living Situation: Family and Other Current Living Situation Comment: Roommates Feels Safe at Home: Yes Assistive Devices: Glasses Review of Systems Constitutional: no fever, no chills and no weight loss Eyes: as per Subjective / HPI Ear, Nose, Mouth, Throat: as per Subjective / HPI Respiratory: no dyspnea and no dyspnea on exertion Cardiovascular: no chest pain and no palpitations Gastrointestinal: as per Subjective / HPI Musculoskeletal: no joint pain and no swelling Integumentary: no rash and no lesions Neurologic: no numbness and no paresthesia Psychiatric: no depression and no anxiety Endocrine: no fatigue Hematologic / Lymphatic: no easy bleeding and no easy bruising Physical Exam Constitutional: WD/WN, vitals as above Eyes: EOM intact bilaterally Neck: normal visual inspection Respiratory: normal respiratory effort, lungs clear to auscultation Cardiovascular: RRR, no murmur, no edema Gastrointestinal (Abdomen): Inspection/Auscultation: abdomen normal to i nspection; abdomen not distended Percussion/Palpation: abdomen soft; abdomen nontender and no hepatosplenomegaly Musculoskeletal: Extremities: no cyanosis Gait: normal gait Skin: no rashes, warm and dry Neurologic: moves all extremities Psychiatric: A+Ox3, euthymic affect Results & Data ([facility]) Vital Signs (Past 12 Hours) Vital Signs Temp Pulse Pulse Resp BP BP Pulse Ox 01/27/20 07:00 36.2 C L 82 18 122/71 97 01/27/20 06:40 109/78 01/27/20 06:37 36.9 C 97 H 16 100 01/27/20 06:32 36.9 C 87 16 109/63 100 01/27/20 06:30 84 16 109/63 100 01/27/20 06:29 36.9 C 82 12 103/62 100 01/27/20 06:15 84 21 103/62 99 01/27/20 06:13 87 19 108/66 100 01/27/20 06:00 85 20 122/58 L 98 01/27/20 05:45 91 H 25 H 95 01/27/20 05:38 100 H 26 H 108/75 95 01/27/20 05:32 91 H 22 135/88 93 01/27/20 05:15 16 01/27/20 05:01 92 H 24 151/88 H 98 01/27/20 05:00 100 H 103 H 21 151/88 H 100 01/27/20 04:52 79 17 144/88 H 99 01/27/20 04:30 87 19 01/27/20 04:15 94 H 21 01/27/20 04:02 92 H 22 01/27/20 04:00 89 84 19 130/83 130/83 98 01/27/20 03:58 90 27 H 114/79 01/27/20 03:07 98 01/27/20 03:06 37 C 01/27/20 02:39 93 H 18 124/81 98 01/27/20 01:47 99 H 19 124/79 98 01/27/20 01:08 97 H 19 121/72 99 01/26/20 22:28 38.3 C H 107 H 17 135/85 98 PG Care Time/CCT Total # of Minutes Spent Total Time Spent with Patient: Total time spent is greater than 50% in coordination of care (as documented) at patient's floor/unit and/or counseling patient: Coding Level of Care Code 43372 Inpt Consult Level 4 Diagnoses Acute hepatic failure K72.00 Hematemesis K92.0
[2020-01-27] MEDS ORDERED: ATROPINE SULFATE 0.1 MG/ML 10ML SYR IV PRN (07:21)
[2020-01-27] MEDS ORDERED: fentaNYL citrate 100 MCG/2 ML VIAL IV PRN (07:21)
[2020-01-27] MEDS ORDERED: ONDANSETRON INJ 2 MG/ML 2 ML VIAL IV PRN (07:21)
[2020-01-27] MEDS ORDERED: ePHEDrine sulfate 50 MG/ML AMP IV PRN (07:21)
--- NOTE | 2020-01-27 07:49 | GI REPORT ---
Patient Name: Sharron Crowley Procedure Date: 01/27/2020 7:00 AM Date of : 2000 Admit Type: Emergency Department Age: 19 Gender: Female Attending MD: Satya Hernandez MD Procedure: Upper GI endoscopy Providers: Satya Hernandez MD Referring MD: Referred Self Indications: Hematemesis, Hematochezia Medicines: Monitored Anesthesia Care Complications: No immediate complications. Estimated blood loss: None. Estimated Blood Loss: Estimated blood loss: none. Procedure: Pre-Anesthesia Assessment: - Prior Anticoagulants: The patient has taken no previous anticoagulant or antiplatelet agents. - ASA Grade Assessment: IV - A patient with severe systemic disease that is a constant threat to life. After obtaining informed consent, the endoscope was passed under direct vision. Throughout the procedure, the patient's blood pressure, pulse, and oxygen saturations were monitored continuously. The Endoscope was introduced through the mouth, and advanced to the second part of duodenum. The upper GI endoscopy was accomplished without difficulty. The patient tolerated the procedure well. Findings: The Z-line was regular. The examined esophagus was normal. Diffuse mild inflammation characterized by erythema was found in the gastric antrum. Biopsies were taken with a cold forceps for Helicobacter pylori testing. Estimated blood loss: none. The duodenal bulb and second portion of the duodenum were normal. Hematin (altered blood/ctdmde-xynyxa-uopw material) was found in the gastric fundus, likely swallowed blood from her previous epistaxis. No evidence of ulcers, AVMs, varices, tears. Impression: - Z-line regular. - Normal esophagus. - Gastritis. Biopsied. - Normal duodenal bulb and second portion of the duodenum. - Hematin (altered blood/nyqhqo-cdzqtf-blxo material) in the gastric fundus. Recommendation: - Return patient to [facility] for ongoing care. - NPO. - Await pathology results. - continue NAC protocol for liver failure -supportive care -trend LFTs and INR -recommend transfer to liver transplant tertiary care center when available -hematemesis likely from swallowed blood when she had epistaxis Satya Hernandez MD 01/27/2020 7:48:57 AM This report has been signed electronically. Note Initiated On: 01/27/2020 7:00 AM Number of Addenda: 0 I attest to the content of the Intraoperative Record and orders documented therein, exceptions below {[id number]}
--- NOTE | 2020-01-27 07:55 | CT Scan Report ---
CT SCAN OF THE ABDOMEN AND PELVIS WITH IV CONTRAST CLINICAL HISTORY: Fever. Lower abdominal pain. Nausea and vomiting. Diarrhea. COMPARISON STUDY: Pelvic ultrasound dated 08/09/2018. TECHNIQUE: Following the IV administration of 92 cc of Optiray 320, CT scan of the abdomen and pelvi s is performed from the lung bases to the proximal femora. Images are reviewed in the axial, sagittal , and coronal planes. IV contrast was administered without complication. A dose lowering technique wa s utilized adhering to the principles of ALARA. CT DOSE: 358.05 mGy.cm FINDINGS: Lung bases: The heart is normal in size and without pericardial effusion. The lung bases are clear. Liver: The contrast-enhanced liver is normal in size, contour, and attenuation. There is no intrahepa tic biliary ductal dilatation. The hepatic veins and portal veins are patent. An apparent 2.1 cm hypo density in the liver and anterior to the IVC likely represents infolded peritoneal fat Gallbladder: Unremarkable. Spleen: Normal in size and attenuation. Pancreas: Unremarkable. Adrenal glands: Unremarkable. Kidneys: The contrast enhanced kidneys are normal in size and without hydronephrosis. The kidneys enh ance symmetrically. Abdominal vasculature: The abdominal aorta is normal in course and caliber. Bowel: There is no bowel obstruction. The appendix is well-visualized and normal. Peritoneum: There is no intraperitoneal free air or abdominal ascites. There is a small fat-containin g umbilical hernia. Lymphadenopathy: None. Pelvic viscera: The bladder, uterus, and adnexa are normal as visualized noting an intrauterine devic e in place and bilateral ovarian follicles. Skeletal structures: No lytic or blastic lesions are seen. IMPRESSION: There are no acute infectious or inflammatory findings in the abdomen or pelvis. ACT 112: Negative or not required by law. Electronically signed by: Chi Gill M.D. 01/27/2020 7:54 AM
[2020-01-27] MEDS ORDERED: ONDANSETRON INJ 2 MG/ML 2 ML VIAL ONE (08:09)
--- NOTE | 2020-01-27 08:12 | Anesthesiology Progress Note ---
Date of Service January 27, 2020 Anesthesia Post Procedure Vital Signs Vital Signs: Temp Pulse Pulse Pulse Resp BP BP 01/27/20 07:58 98.2 F 94 H 16 124/72 01/27/20 07:00 97.2 F L 82 18 01/27/20 06:40 109/78 01/27/20 06:37 98.4 F 97 H 16 01/27/20 06:32 98.4 F 87 16 109/63 01/27/20 06:30 84 16 109/63 01/27/20 06:29 98.4 F 82 12 103/62 01/27/20 06:15 84 21 103/62 01/27/20 06:13 87 19 108/66 01/27/20 06:00 85 20 122/58 L 01/27/20 05:45 91 H 25 H 01/27/20 05:38 100 H 26 H 108/75 01/27/20 05:32 91 H 22 135/88 01/27/20 05:15 16 01/27/20 05:01 92 H 24 151/88 H 01/27/20 05:00 100 H 103 H 21 01/27/20 04:52 79 17 144/88 H 01/27/20 04:30 87 19 01/27/20 04:15 94 H 21 01/27/20 04:02 92 H 22 01/27/20 04:00 89 84 19 130/83 01/27/20 03:58 90 27 H 114/79 01/27/20 03:07 01/27/20 03:06 98.6 F 01/27/20 02:39 93 H 18 01/27/20 01:47 99 H 19 01/27/20 01:08 97 H 19 01/26/20 22:28 100.9 F H 107 H 17 135/85 BP Pulse Ox 01/27/20 07:58 96 01/27/20 07:00 122/71 97 01/27/20 06:40 01/27/20 06:37 100 01/27/20 06:32 100 01/27/20 06:30 100 01/27/20 06:29 100 01/27/20 06:15 99 01/27/20 06:13 100 01/27/20 06:00 98 01/27/20 05:45 95 01/27/20 05:38 95 01/27/20 05:32 93 01/27/20 05:15 01/27/20 05:01 98 01/27/20 05:00 151/88 H 100 01/27/20 04:52 99 01/27/20 04:30 01/27/20 04:15 01/27/20 04:02 01/27/20 04:00 130/83 98 01/27/20 03:58 01/27/20 03:07 98 01/27/20 03:06 01/27/20 02:39 124/81 98 01/27/20 01:47 124/79 98 01/27/20 01:08 121/72 99 01/26/20 22:28 98 Transfer of Care Handoff Completed per policy Notes Mental Status: alert / awake / arousable and participated in evaluation Patient Amnestic to Procedure: Yes Nausea / Vomiting: adequately controlled Pain: adequately controlled Airway Patency, RR, SpO2: stable & adequate BP & HR: stable & adequate Hydration State: stable & adequate Anesthetic Complications: no major complications apparent and Pt Satisfied with anesthetic care
--- NOTE | 2020-01-27 10:02 | History & Physical Bridge Note ---
Date of Service January 27, 2020 History & Physical Bridge Note I have examined the patient, reviewed the History & Physical and in the interval since the performance of the History & Physical I have noted the following changes of clinical significance: With LFT elevations in the thousands, would be concerned about other overlapping etiologies worsened with alcohol use including infectious hepatitis and autoimmune hepatitis. Tylenol level was normal making this a less likely etiology. In addition to the interventions noted in the original GI consult, I would also advise the following: -Recommend checking acute hepatitis panel (A, B, C) in addition to EBV to assess for infectious etiologies. Lyme previously obtained. -Would advise checking autoimmune studies to include INDERJIT, ASMA, & AMA. While unlikely, will order a Ceruloplasmin level as well as an alpha 1 antitrypsin. -Repeat INR now. Would recommend closely following this. -If [facility] has no beds available, I would recommend the primary team attempt transfer elsewhere (ie--[facility] or [facility]). Would strongly advise patient be in a center with hepatology and transplant services on site. Thank you for allowing us to participate in the care of this patient. If you should have any further questions or concerns, do not hesitate to contact us at extension [phone] or [phone].
[2020-01-27 10:30] LABS: INR 1.4 (0.9-1.1); Prothrombin Time 14.5 Seconds (9.0-12.0)
[2020-01-27] MEDS: NORMOSOL-R 1,000 ML IV SCH ×2 (10:30→19:09)
--- NOTE | 2020-01-27 11:21 | Electrocardiogram Report ---
Test Reason : Blood Pressure : / mmHG Vent. Rate : 084 BPM Atrial Rate : 084 BPM P-R Int : 144 ms QRS Dur : 086 ms QT Int : 420 ms P-R-T Axes : 029 069 040 degrees QTc Int : 496 ms Normal sinus rhythm Prolonged QT Abnormal ECG When compared with ECG of 09-AUG-2018 22:17, No significant change was found Confirmed by Robert Linder ([id number]) on 01/27/2020 11:21:25 AM Referred By: REFERRED SELF Confirmed By:Marvin Linder
--- NOTE | 2020-01-27 14:07 | Discharge Summary ---
Date of Service January 27, 2020 Admission HPI Per Admitting Provider Pt initially recommended for transfer to [facility] [place], pt declined for transfer. Below is copy and pasted from initial Hospitalist Consult for coding as HPI. A&P updated. Sharron is a 19yo F with a past medical history of anxiety/depression who presents with feelings of general unwellness the day following an episode of high alcohol use. Her labs are concerning for acute hepatic failure. She reports that she started feeling poorly at around 6 PM the night of admission. She developed fatigue, headache, and a feeling of hot/cold alternation with some shortness of breath. She reports she felt generally well prior to this, but the night prior she had gone out and had up to 6 drinks with Gin with an unmeasured amount of alcohol in each drink. She reports that this is more than she normally drinks, normally drinks approximately twice a month with a couple of drinks per episode. She denies any other recent illness, and has not had any fevers/chills/nausea/vomiting/diarrhea/constipation/abdominal p ain prior to this episode. She has been nauseous but has not vomited with her current episode. 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 None of her housemates have been sick, and she has no sick contacts. She has taken her bupropion and Trintellix as prescribed, denies other medication use or intentional ingestions. She reports she has taken 1 ibuprofen for headache, otherwise has not used any [id number] medications. She has had no medication changes recently. She does not use tobacco products. She uses marijuana occasionally, last a couple of days ago. She denies muscle aches and muscle pains. Medical history: Reviewed Surgical history: Reviewed Medications: Reviewed, bupropion and Trintellix without recent changes. Medication allergies: Amoxicillin, rash Family history: Patient denies family history of liver disease, autoimmune disease. CODE STATUS: Full code Admission Exam Per Admitting Provider General: A&Ox3. NAD. Cooperative. HEENT: Atraumatic, normocephalic. No scleral icterus. No jaundice. Pulm: CTAB A&P. -wheezes, -rales, -rhonchi. Symmetrical chest rise. No increase work of breathing. No respiratory distress. Cardiac: RRR, -mrg. Radial pulses intact and symmetrical. Abdominal: Nontender, nondistended, soft. BS present. CRANIAL NERVES: II: Pupils equal and reactive, no relative afferent pupillary defect, no VF cuts III, IV, : EOM intact, no gaze preference or deviation, no nystagmus. V: normal sensation in V1, V2, and V3 segments bilaterally VII: no asymmetry, no nasolabial fold flattening VIII: normal hearing to speech IX, X: normal palatal elevation, no uvular deviation XI: 5/5 head turn and 5/5 shoulder shrug bilaterally XII: midline tongue protrusion Principal Diagnosis Acute Hepatic Failure Discharge Exam Constitutional WD/WN, vitals as above appears fatigued Eyes PERRL, conjunctivae normal, anicteric sclerae Respiratory normal respiratory effort, lungs clear to auscultation Cardiovascular RRR, no murmur, no edema Gastrointestinal (Abdomen) normal bowel sounds, soft, nontender, no hepatosplenomegaly Musculoskeletal no cyanosis or clubbing, extremities motor strength 5/5 Skin no rashes, warm and dry Neurologic patellar DTR's 2+ bilat, sensation intact Discharge Data Allergies Allergy/AdvReac Type Severity Reaction Status Date / Time amoxicillin Allergy Mild Rash Verified 01/26/20 23:15 Consultations 01/27/20 02:22 ED Decision to Admit Stat 01/27/20 09:05 Consult Gastroenterology Routine Consult Hematology Routine 01/27/20 11:14 Burn CD for patient Stat Procedures Performed Operation Date: 01/27/20 06:30 Actual Procedures p Esophagogastroduodenoscopy(Not Applicable) - Satya Hernandez MD Operation Date: 01/27/20 07:20 <No data on this case meets the specified criteria> Ordered Studies 01/26/20 23:03 CT abd pelvis IV con only Urgent Hospital Course (1) Acute hepatic failure: Sharron is a 19-year-old female with past medical history of anxiety and depression who presents with general unwellness and is found to have transaminitis with AST 3000, ALT 2000 on admission following alcohol use two nights prior, highly concerning for acute hepatic failure. Acute Hepatic Failure with Transaminitis, elevated INR AST 3000, ALT 2000 CT scan shows no acute findings, no liver abnormalities. Lack of chronic findings with acute lab abnormalities suggest severe acute liver disease. Patient reports high alcohol intake (6 mixed drinks with gin) 24 hours prior to onset of symptoms - Ethyl Alcohol negative on admission but night of heavy drinking 24 hours before onset of symptoms - Febrile to 38.3 on admission - HepB sAg negative, hep a pending, hep C pending. Monoscreen negative. INR 1.5 - CK WNL No signs of encephalopathy Tylenol level negative Salicylate negative - COVID negative - UTox positive for marijuana - at this point ddx for acute hepatic failure includes alcoholic hepatitis, auto-immune disease, alpha-1 antitrypsin deficiency, Mikal's disease - pending [id number], ceruloplasmin, INDERJIT, AMA, anti-smooth muscle ab, liver/kidney microsomes ab Case discussed with Dr. Hernandez with on-call gastroenterology. Patient's high transaminitis and elevated INR suggestive of synthetic dysfunction are extremely concerning for acute hepatic failure. It was recommended she be transferred to higher level of care, and that she be started on N-acetylcysteine protocol prior to transfer. - Case discussed with [facility] [place] and recommended for transfer; patient accepted to hepatology service (Dr. Stokes). Patient and her mother are amenable to this plan. Continue NAC protocol - Vitamin K PO 5mg - continue IVF support - continue to monitor LFTs, INR closely Hematemesis - occurred prior to transfer from ED to floor - stat EGD showed signs of gastritis (biopsied to evaluate for H. Pylori) but no signs of bleeding ulcers, varices or other sources of bleeding - patient has h/o epistaxis from childhood and reported episode in the ED - blood in vomitus likely 2/2 swallowed blood after epistaxis Acute Diarrhea, resolving - watery diarrhea of one-week duration, no blood or mucus - symptoms preceded night of drinking - patient reports improvement in symptoms as of this morning - suspect viral gastroenteritis, less likely H. Pylori but pathology pending to definitively r/o - continue IVF support as mentioned above Hypophosphatemia - patient reports adequate PO intake before admission - suspect 2/2 several times emesis and acute diarrhea x one week - continue IVF support as above Abnormal Bleeding - frequent episodes of prolonged epistaxis of 20-30 minutes - h/o abnormal uterine bleeding --> has h/o uterine polypectomy with subsequent improvement in bleeding; now has IUD - PT 14.5, PTT 32.8, INR 1.5 - suspect nasal polyp as source of prolonged epistaxis --> may need further eval of this as outpatient - continue to follow PT/PTT/INR Depression/Anxiety - Continue Bupropion HCl 300 mg PO daily and Trintellix 10 mg PO daily (2) Transaminitis: (3) Gastroenteritis: (4) Elevated INR: (5) Acute diarrhea: (6) Hypophosphatemia: (7) Anxiety: (8) Depression: (9) Marijuana use: Total Time Total Time Spent Total Time Spent (In Minutes): 30 minutes Total Time Includes: Examination of the Patient, Discharge Planning, Medication Reconciliation and Communication With Other Providers Discharge Plan Discharge Items Patient Disposition: Transfer [facility] Reason For Visit: ACUTE HEPATIC FAILURE Discharge Diagnosis: Acute Transaminitis Activity: Per Instructions section Non-emergency contact: Primary Care Provider and Furnace Tender Call non-emergency contact if: you have any medication questions and your symptoms worsen Follow-up/Referrals: James Marie MD [Primary Care Provider] - Diet: Regular Addtl Attending Provider Instructions: Sharron is a 19-year-old female with past medical history of anxiety and depression who presents with general unwellness and is found to have transaminitis with AST 3000, ALT 2000 on admission following alcohol use two nights prior, highly concerning for acute hepatic failure. Acute Hepatic Failure with Transaminitis, elevated INR AST 3000, ALT 2000 CT scan shows no acute findings, no liver abnormalities. Lack of chronic findings with acute lab abnormalities suggest severe acute liver disease. Patient reports high alcohol intake (6 mixed drinks with gin) 24 hours prior to onset of symptoms - Ethyl Alcohol negative on admission but night of heavy drinking 24 hours before onset of symptoms - Febrile to 38.3 on admission - HepB sAg negative, hep a pending, hep C pending. Monoscreen negative. INR 1.5 - CK WNL No signs of encephalopathy Tylenol level negative Salicylate negative - COVID negative - UTox positive for marijuana - at this point ddx for acute hepatic failure includes alcoholic hepatitis, auto-immune disease, alpha-1 antitrypsin deficiency, Mikal's disease - pending [id number], ceruloplasmin, INDERJIT, AMA, anti-smooth muscle ab, liver/kidney microsomes ab Case discussed with Dr. Hernandez with on-call gastroenterology. Patient's high transaminitis and elevated INR suggestive of synthetic dysfunction are extremely concerning for acute hepatic failure. It was recommended she be transferred to higher level of care, and that she be started on N-acetylcysteine protocol prior to transfer. - Case discussed with [facility] [place] and recommended for transfer; patient accepted to hepatology service (Dr. Stokes). Patient and her mother are amenable to this plan. Continue NAC protocol - Vitamin K PO 5mg - continue IVF support - continue to monitor LFTs, INR closely Hematemesis - occurred prior to transfer from ED to floor - stat EGD showed signs of gastritis (biopsied to evaluate for H. Pylori) but no signs of bleeding ulcers, varices or other sources of bleeding - patient has h/o epistaxis from childhood and reported episode in the ED - blood in vomitus likely 2/2 swallowed blood after epistaxis Acute Diarrhea - watery diarrhea of one-week duration, no blood or mucus - symptoms preceded night of drinking - patient reports improvement in symptoms as of this morning - suspect viral gastroenteritis, less likely H. Pylori but pathology pending to definitively r/o - continue IVF support as mentioned above Abnormal Bleeding - frequent episodes of prolonged epistaxis of 20-30 minutes - h/o abnormal uterine bleeding --> has h/o uterine polypectomy with subsequent improvement in bleeding; now has IUD - PT 14.5, PTT 32.8, INR 1.5 - suspect nasal polyp as source of prolonged epistaxis --> may need further eval of this as outpatient - continue to follow PT/PTT/INR Pending Studies at Discharge: Yes Studies:: [id number], ceruloplasmin, INDERJIT, AMA, anti-smooth muscle ab, liver/kidney microsomes ab Stand-Alone Forms: My [facility] Skilled Items Patient informed of condition?: Yes DNR: No Discharge Level of Care: Other Communicable Disease: No Discharge Prognosis: Stable Lines: Peripheral IV Urinary Catheter: No Medications and DC Order Prescriptions: Continued bupropion HCl 300 mg tablet extended release 24 hr 300 mg PO DAILY RF: 0 Trintellix 10 mg tablet 10 mg PO DAILY RF: 0 Discharge Orders: Discharge Order (Routine); Ordered 01/27/20 Ordered By: Ish Meade Admission Data Admit Date/Time: 01/27/20 04:55 Attending Provider: Amor Sellers Admit Provider: Simone Virk Primary Care Provider: Cynthia,James Other Providers: Juan Antonio Nicholson ; Satya Hernandez ; Pratik Ortega V. Other Interventions: Discharge Summary Assessment (RN) Last Done: 01/27/20 11:21 Supervising Physician Co-Signing Physician Notes Attending attestation Pt seen and examined in concert with Dr. Meade. In agreement with the documented findings as noted in the resident documentation with any exceptions or additions as noted here. 19 y/o female w/ h/o anxiety/depression presents with acute transaminitis after episode of alcohol use Pt resting in bed complaining of mild nausea and fatigue relatively unchanged from presentation. On examination, S1/S2 nl RRR no MCG. CTAB. Abd NT/ND BS+ve Acute transaminitis with elevated INR in the setting of recent etOH use and diarrhea complaints - GI consultation appreciated - pending lab studies for underlying cause but with concern for acute hepatic failure agree w/ Dr. Hernandez re: transition of care to tertiary center ([facility] [place]). Continue NAC protocol. Hematemesis - s/p urgent EGD with only gastritis without acute source of bleeding - rec'd IV PPI and H2 therapy in ED Acute diarrheal illness - unknown if precipitating or coincidental - IVF Else see resident documentation as noted. Resident Activity Tracking Resident Involvement: Resident Care Provided Care Provided: Adult Hospital Medicine
--- NOTE | 2020-01-27 23:32 | Consultation Report ---
DATE OF CONSULTATION: 01/27/2020 HISTORY OF PRESENT ILLNESS: The patient admitted because of hepatitis. She gives no history of illicit drugs. No alcohol. Has not been near anyone with hepatitis. She has no history of chronic liver disease. The patient also noted to have a mildly prolonged prothrombin time with an INR of 1.4. The patient developed one episode of epistaxis in the hospital. She said she swallowed some of the blood and vomited it up, but does not think that the bleeding was coming from the GI tract. The patient feels reasonably well at the moment. Her CBC is normal. Her liver enzymes are markedly elevated. PHYSICAL EXAMINATION: GENERAL: No fever. NECK: No adenopathy. CHEST: Clear. HEART: Regular rhythm. ABDOMEN: Soft, benign, no ascites. SKIN No jaundice. NEUROLOGIC: No asterixis. Awake, alert and oriented. IMPRESSION: Hepatitis, probably viral in etiology. Prolonged INR due to hepatocyte dysfunction. Until liver function improves if her INR exceeds 1.5, or should she develop bleeding, she should receive fresh frozen plasma as vitamin K will likely be ineffective. If not done already, an imaging study of the liver is indicated. MTDD
[2020-01-28 11:03] LABS: EBV Nuclear Ag Antibody <18.00 U/mL; EBV Virus Capsid Ag IgG Ab <18.00 U/mL; Epstein Barr Virus Early Ag Ab <9.00 U/mL
[2020-01-29 00:52] LABS: Marijuana Quant, GCMS Urine 89 ng/mL (<5)
[2020-01-30 16:44] LABS: Alpha 1 Antitrypsin 111 mg/dL (83-199); Anti Nuclear Antibody Screen NEGATIVE (NEGATIVE); Ceruloplasmin 29 mg/dL (18-53); Liver,Kidney Microsome IgG Ab <=20.0 U (<=20.0); Smooth Muscle Antibody NEGATIVE (NEGATIVE)
[2020-01-31 02:44] LABS: Hepatitis A Antibody IgM NON-REACTIVE (NON-REACTIVE); Hepatitis B Core Antibody IgM NON-REACTIVE (NON-REACTIVE)
--- NOTE | 2020-02-02 22:07 | Billing Data ---
Date of Service February 02, 2020 Coding Level of Care Code 48493 Initial Inpt Care Lvl 3
--- NOTE | 2020-02-10 07:54 | Coding Query ---
CODING QUERY To promote full compliance with coding requirements relating to patient care, provider participation is requested in all cases of broomcorn sorter uncertainty. Please assist us with the question(s) below: Coding Question(s): Acute Hepatic Failure is documented with documentation of acute transaminitis with elevated INR in the setting of recent eTOH use and there is documentation of, "at this point ddx for acute hepatic failure includes alcoholic hepatitis, auto-immune disease, alpha-1 antitrypsin deficiency, Mikal's disease - pending [id number], ceruloplasmin, INDERJIT, AMA, anti-smooth muscle ab, liver/kidney microsomes ab". Please specify below, in your clinical opinion, regarding the likely etiology(ies) of Acute Hepatic Failure. Please check all that apply. ( ) Acute Hepatic Failure is likely Alcoholic Hepatic Failure ( ) Acute Hepatic Failure is likely Alcoholic Hepatic Failure as well as possible Acute Hepatic Failure from other etiologies ( ) Acute Hepatic Failure is likely Other etiology: Please Specify (x ) Acute Hepatic Failure is Unknown likely etiology Physician's Response(s): Thank you Gloria Bhatti Principal Diagnosis: "that condition established after study, to be chiefly responsible for occasioning the admission of the patient to the hospital for care." Co-Existing Principal Diagnosis: "when two or more diagnoses equally meet the criteria for principal diagnosis as determined by the circumstances of admission, diagnostic work up, and/or therapy provided, and the Alphabetic Index, Tabular List, or another coding guideline does not provide sequencing direction, any one of the diagnoses may be sequenced first." "When the physician has documented what appears to be a current diagnosis in the body of the record, but has not included the diagnosis in the final diagnostic statement, the physician should be asked whether the diagnosis should be added." (Source Coding [facility] 2 QTR90. p3-4) MIKE
== END 2020-01-27 19:30 | disposition short-term general hospital (02) | DRG 442 ==
LOC: ED 22:27 → SUATTDRO 01-27 04:55 → 2S 01-27 04:55